=== PATIENT | female | born 1930 | race Caucasian/White ===

== ENCOUNTER 2016-06-15 15:28 | Inpatient (IN) | payer MEDICARE, BC ==
[2016-06-15] MEDS ORDERED: Sodium Chloride 0.9% 10 ML Syringe FLUSH PRN (16:30)
[2016-06-15] MEDS ORDERED: Sodium Chloride 0.9% 1,000 ML IV ONE (16:32)
[2016-06-15] MEDS ORDERED: Levofloxacin/Dextrose 5%-Water 500 MG in Premix Bag 1 BAG IV ONE (18:19)
--- NOTE | 2016-06-15 18:30 | EDM.PDOC ---
ED HPI LOWER BACK PAIN/INJURY - General Chief Complaint: Back Pain or Injury Stated Complaint: [facility] Time Seen by Provider: 06/15/16 16:19 Source of Information: Reports: Patient, EMS, Family (Son) History Limitations: Reports: No limitations - History of Present Illness INITIAL COMMENTS - FREE TEXT/NARRATIVE: Patient presents via the [facility] ambulance service for evaluation and treatment of weakness and dizziness. She has had 3 falls since Sunday; did not hit her head nor lose consciousness with the falls. She is progressively become more weak and dizzy throughout the week. She is also complaining of pain to her right flank and back and left lower ribs. She denies any nausea, vomiting, chest pain, abdominal pain, shortness of breath, coughing or diarrhea. She did not have a bowel movement today. Ambulance service was called today as the patient was unable to get out of bed due to her weakness. She lives in [place] with her son and [id number]. Per EMS report was incontinent of stool on arrival. 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 Denies: fever Respiratory: Denies: shortness of breath, cough Cardiovascular: Reports: Other (left rib pain). Denies: Chest pain GI/Abdominal: Reports: Stool incontinence. Denies: Abdominal pain, Diarrhea, Hematochezia, Melena, Nausea, Vomiting : Reports: flank pain (right). Denies: dysuria Neurological: Reports: dizziness ED EXAM,LOWER BACK PAIN/INJURY - Physical Exam Exam: See Below Exam Limited By: No limitations General Appearance: alert, WD/WN, no apparent distress Neck: normal inspection. 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 Q wave in lead III. Reviewed by myself and Dr. Mchugh. Course - Vital Signs Last Recorded V/S: Last Vital Signs Temp 37.3 C 06/15/16 21:30 Pulse 92 06/15/16 21:30 Resp 18 06/15/16 21:30 BP 134/62 06/15/16 21:30 Pulse Ox 91 L 06/15/16 21:30 - Orders/Labs/Meds Orders: Active Orders 24 hr Category Date Time Status Chest 1V Frontal [CR] Stat Exams 06/15/16 16:31 Taken CULTURE URINE [RM] Stat Lab 06/15/16 16:40 Received Sodium Chloride 0.9% [Saline Flush] Med 06/15/16 16:30 Active 10 ml FLUSH ASDIRECTED PRN Peripheral IV Insertion Adult [OM.PC] Routine Oth 06/15/16 16:30 Ordered Medication Orders Acetaminophen (Tylenol) 650 mg PO Q4H PRN PRN Reason: Pain (Mild 1-3)/fever Acetaminophen/Hydrocodone Bitart ([place] 325-5 Mg) 1 tab PO Q4H PRN PRN Reason: Pain (moderate 4-6) Albuterol (Proventil Neb Soln) 2.5 mg NEB Q2H PRN PRN Reason: Shortness Of Breath/wheezing Bisacodyl (Dulcolax) 5 mg PO DAILY PRN PRN Reason: Constipation Docusate Sodium (Colace) 100 mg PO BID PRN PRN Reason: Constipation Enoxaparin Sodium (Lovenox) 30 mg SUBCUT DAILY [facility] Hydromorphone HCl (Dilaudid) 0.25 mg IVPUSH Q2H PRN PRN Reason: Pain (severe 7-10) Dextrose/Sodium Chloride (Dextrose 5%-1/2 Ns) 1,000 mls @ 125 mls/hr IV ASDIRECTED [facility] Last Admin: 06/15/16 23:30 Dose: 125 mls/hr Levofloxacin/Dextrose 500 mg/ (Premix) 100 mls @ 100 mls/hr IV Q24H JESSIE Promethazine HCl 12.5 mg/ (Sodium Chloride) 50.5 mls @ 100 mls/hr IV Q6H PRN PRN Reason: Nausea/Vomiting Thiamine HCl 100 mg/ Sodium (Chloride) 101 mls @ 50 mls/hr IV ONETIME ONE Stop: 06/16/16 00:58 Levothyroxine Sodium (Levothyroxine) 75 mcg PO ACBREAKFAST [facility] Multivitamins (Thera) 1 each PO DAILY [facility] Ondansetron HCl (Zofran) 4 mg IV Q6H PRN PRN Reason: Nausea/Vomiting Pantoprazole Sodium (Protonix) 40 mg PO DAILY@0700 [facility] Senna/Docusate Sodium (Senna Plus) 1 tab PO BID PRN PRN Reason: Constipation Sodium Chloride (Saline Flush) 10 ml FLUSH ASDIRECTED PRN PRN Reason: Keep Vein Open Last Admin: 06/15/16 16:50 Dose: 10 ml Temazepam (Restoril) 15 mg PO BEDTIME PRN PRN Reason: Sleep Thiamine HCl (Vitamin B-1) 100 mg PO BEDTIME [facility] Labs: Laboratory Tests 06/15/16 06/15/16 06/15/16 Range/Units 15:48 16:40 16:40 WBC 14.79 H (3.98-10.04) K/mm3 RBC 4.12 (3.98-5.22) M/mm3 Hgb 12.6 (11.2-15.7) gm/L Hct 37.9 (34.1-44.9) % MCV 92.0 (79.4-94.8) fl MCH 30.6 (25.6-32.2) pg MCHC 33.2 (32.2-35.5) g/dl RDW Std Deviation 46.9 H (36.4-46.3) fL Plt Count 335 (182-369) K/mm3 MPV 8.8 L (9.4-12.3) fl Neut % (Auto) 86.0 H (34.0-71.1) % Lymph % (Auto) 6.0 L (19.3-51.7) % [place] % (Auto) 7.6 (4.7-12.5) % Eos % (Auto) 0.1 L (0.7-5.8) Baso % (Auto) 0.2 (0.1-1.2) % Neut # 12.72 H (1.56-6.13) K/mm3 Lymph # 0.89 L (1.18-3.74) K/mm3 [place] # 1.12 H (0.24-0.36) K/mm3 Eos # 0.01 L (0.04-0.36) K/mm3 Baso # 0.03 (0.01-0.08) K/mm3 Manual Slide Review Abnormal smear Sodium 138 (136-145) mEq/L Potassium 4.1 (3.5-5.1) mEq/L Chloride 100 (98-107) mEq/L Carbon Dioxide 27 (21-32) mEq/L Anion Gap 15.1 H (5-15) BUN 31 H (7-18) mg/dL Creatinine 1.0 (0.55-1.02) mg/dL Est Cr Clr Drug Dosing 37.80 mL/min Estimated GFR (MDRD) 53 (>60) mL/min BUN/Creatinine Ratio 31.0 H (14-18) Glucose 127 H (83-115) mg/dL Calcium 9.4 (8.5-10.1) mg/dL Total Bilirubin 0.6 (0.2-1.0) mg/dL AST 46 H (15-37) U/L ALT 44 (14-59) U/L Alkaline Phosphatase 152 H (46-116) U/L CK-MB (CK-2) 2.0 (0-3.6) ng/ml Troponin I < 0.017 (0.00-0.056) ng/mL C-Reactive Protein (<1.0) mg/dL B-Natriuretic Peptide (0-100) pg/mL Total Protein 7.3 (6.4-8.2) g/dl Albumin 3.3 L (3.4-5.0) g/dl Globulin 4.0 gm/dL Albumin/Globulin Ratio 0.8 L (1-2) TSH 3rd Generation 1.858 (0.358-3.74) uIU/mL Urine Color Meghann H (Yellow) Urine Appearance Clear (Clear) Urine pH 5.5 (5.0-8.0) Ur Specific [place] 1.025 (1.005-1.030) Urine Protein 2+ H (Negative) Urine Glucose (UA) Negative (Negative) Urine Ketones 1+ H (Negative) Urine Occult Blood 2+ H (Negative) Urine Nitrite Positive H (Negative) Urine Bilirubin 1+ H (Negative) Urine Urobilinogen 1.0 (0.2-1.0) Ur Leukocyte Esterase Negative (Negative) Urine RBC 0-5 (0-5) /hpf Urine WBC 5-10 H (0-5) /hpf Urine WBC Clumps Rare (NOT SEEN) /hpf Ur Squamous Epith Cells Not seen (0-5) /hpf Urine Bacteria Many H (FEW) /hpf Urine Mucus Not seen (FEW) /hpf 06/15/16 06/15/16 Range/Units 16:40 16:40 WBC (3.98-10.04) K/mm3 RBC (3.98-5.22) M/mm3 Hgb (11.2-15.7) gm/L Hct (34.1-44.9) % MCV (79.4-94.8) fl MCH (25.6-32.2) pg MCHC (32.2-35.5) g/dl RDW Std Deviation (36.4-46.3) fL Plt Count (182-369) K/mm3 MPV (9.4-12.3) fl Neut % (Auto) (34.0-71.1) % Lymph % (Auto) (19.3-51.7) % [place] % (Auto) (4.7-12.5) % Eos % (Auto) (0.7-5.8) Baso % (Auto) (0.1-1.2) % Neut # (1.56-6.13) K/mm3 Lymph # (1.18-3.74) K/mm3 [place] # (0.24-0.36) K/mm3 Eos # (0.04-0.36) K/mm3 Baso # (0.01-0.08) K/mm3 Manual Slide Review Sodium (136-145) mEq/L Potassium (3.5-5.1) mEq/L Chloride (98-107) mEq/L Carbon Dioxide (21-32) mEq/L Anion Gap (5-15) BUN (7-18) mg/dL Creatinine (0.55-1.02) mg/dL Est Cr Clr Drug Dosing mL/min Estimated GFR (MDRD) (>60) mL/min BUN/Creatinine Ratio (14-18) Glucose (83-115) mg/dL Calcium (8.5-10.1) mg/dL Total Bilirubin (0.2-1.0) mg/dL AST (15-37) U/L ALT (14-59) U/L Alkaline Phosphatase (46-116) U/L CK-MB (CK-2) (0-3.6) ng/ml Troponin I (0.00-0.056) ng/mL C-Reactive Protein 13.8 H* (<1.0) mg/dL B-Natriuretic Peptide 94 (0-100) pg/mL Total Protein (6.4-8.2) g/dl Albumin (3.4-5.0) g/dl Globulin gm/dL Albumin/Globulin Ratio (1-2) TSH 3rd Generation (0.358-3.74) uIU/mL Urine Color (Yellow) Urine Appearance (Clear) Urine pH (5.0-8.0) Ur Specific [place] (1.005-1.030) Urine Protein (Negative) Urine Glucose (UA) (Negative) Urine Ketones (Negative) Urine Occult Blood (Negative) Urine Nitrite (Negative) Urine Bilirubin (Negative) Urine Urobilinogen (0.2-1.0) Ur Leukocyte Esterase (Negative) Urine RBC (0-5) /hpf Urine WBC (0-5) /hpf Urine WBC Clumps (NOT SEEN) /hpf Ur Squamous Epith Cells (0-5) /hpf Urine Bacteria (FEW) /hpf Urine Mucus (FEW) /hpf Meds: Medications Generic Name Dose Route Start Last Admin Trade Name Freq PRN Reason Stop Dose Admin Acetaminophen 650 mg 06/15/16 22:52 Tylenol PO Q4H PRN Pain (Mild 1-3)/fever Acetaminophen/Hydrocodone Bitart 1 tab 06/15/16 22:52 [place] 325-5 Mg PO Q4H PRN Pain (moderate 4-6) Albuterol 2.5 mg 06/15/16 22:52 Proventil Neb Soln NEB Q2H PRN Shortness Of Breath/wheezing Bisacodyl 5 mg 06/15/16 22:52 Dulcolax PO DAILY PRN Constipation Docusate Sodium 100 mg 06/15/16 22:52 Colace PO BID PRN Constipation Enoxaparin Sodium 30 mg 06/16/16 09:00 Lovenox SUBCUT DAILY JESSIE Hydromorphone HCl 0.25 mg 06/15/16 22:52 Dilaudid IVPUSH Q2H PRN Pain (severe 7-10) Dextrose/Sodium Chloride 1,000 mls @ 125 mls/hr 06/15/16 23:00 06/15/16 23:30 Dextrose 5%-1/2 Ns IV 125 mls/hr ASDIRECTED JESSIE Administration Levofloxacin/Dextrose 500 mg/ 100 mls @ 100 mls/hr 06/16/16 09:00 Premix IV Q24H JESSIE Promethazine HCl 12.5 mg/ 50.5 mls @ 100 mls/hr 06/15/16 22:52 Sodium Chloride IV Q6H PRN Nausea/Vomiting Thiamine HCl 100 mg/ Sodium 101 mls @ 50 mls/hr 06/15/16 22:57 Chloride IV 06/16/16 00:58 ONETIME ONE Levothyroxine Sodium 75 mcg 06/16/16 06:00 Levothyroxine PO ACBREAKFAST [facility] Multivitamins 1 each 06/16/16 09:00 Thera PO DAILY [facility] Ondansetron HCl 4 mg 06/15/16 22:52 Zofran IV Q6H PRN Nausea/Vomiting Pantoprazole Sodium 40 mg 06/16/16 07:00 Protonix PO DAILY@0700 JESSIE Senna/Docusate Sodium 1 tab 06/15/16 22:52 Senna Plus PO BID PRN Constipation Sodium Chloride 10 ml 06/15/16 16:30 06/15/16 16:50 Saline Flush FLUSH 10 ml ASDIRECTED PRN Administration Keep Vein Open Temazepam 15 mg 06/15/16 22:52 Restoril PO BEDTIME PRN Sleep Thiamine HCl 100 mg 06/16/16 21:00 Vitamin B-1 PO BEDTIME JESSIE Discontinued Medications Generic Name Dose Route Start Last Admin Trade Name Dick PRN Reason Stop Dose Admin Sodium Chloride 1,000 mls @ 999 mls/hr 06/15/16 16:32 06/15/16 16:54 Normal Saline IV 06/15/16 17:32 999 mls/hr ONETIME ONE Administration Levofloxacin/Dextrose 500 mg/ 100 mls @ 100 mls/hr 06/15/16 18:19 06/15/16 18 :24 Premix IV 06/15/16 19:18 100 mls/hr ONETIME ONE Administration Influenza Virus Vaccine 60 mcg 06/15/16 22:46 Fluzone/Fluarix Vaccine IM 06/15/16 22:47 .ONCE ONE - Radiology Interpretation Free Text/Narrative:: Chest xray shows no acute intrathoracic process. CT Results Date: 06/15/16 - Re-Assessments/Exams Free Text/Narrative Re-Assessment/Exam: 06/15/16 18:54 Lab studies have returned. White blood cell count is 14.79, hgb is 12.6 and platelets are 335. UA has 2+ protein, 1+ ketones, 2+ blood, 1+ bilirubin and positive for nitrates. Negative for leukocytes. Sodium is 138, potassium is 4.1 and chloride is 100. Anion gap is 15.1. Glucose is 127. Trop is within normal limits at less than 0.017 CK-MB is within normal limits at 2.0. CRP is elevated at 13.8. TSH is within normal limits at 1.858. Discussed the imaging, lab and EKG results with the patient amd her son. I feel that she is too weak to go home and is at risk for falls. Her son agrees. We will plan on admission. I spoke to Dr. Carr, hospitalist monogram technician. He accepts the patient. Will go to [facility] [place]. Under Dr. Maya. Departure - Departure Time of Disposition: 19:00 Disposition: Admitted As Inpatient 66 Condition: poor Clinical Impression: Urinary tract infection, Weakness - My Orders Last 24 Hours: My Active Orders 06/15/16 16:30 Sodium Chloride 0.9% [Saline Flush] 10 ml FLUSH ASDIRECTED PRN Peripheral IV Insertion Adult [OM.PC] Routine 06/15/16 16:31 Chest 1V Frontal [CR] Stat 06/15/16 16:40 CULTURE URINE [RM] Stat - Assessment/Plan Last 24 Hours: My Active Orders 06/15/16 16:30 Sodium Chloride 0.9% [Saline Flush] 10 ml FLUSH ASDIRECTED PRN Peripheral IV Insertion Adult [OM.PC] Routine 06/15/16 16:31 Chest 1V Frontal [CR] Stat 06/15/16 16:40 CULTURE URINE [RM] Stat
--- NOTE | 2016-06-15 18:41 | CT ---
CT abdomen and pelvis Technique: Multiple axial sections were obtained from above the dome of the diaphragm inferiorly through the pubic symphysis. Intravenous and oral contrast not utilized. Study was performed as a ureteral stone protocol. Comparison: No previous study. Findings: Increased density noted within the right lung base most likely due to atelectasis or possibly due to pneumonia if patient has infectious symptoms. Liver shows no focal abnormality. Adrenal glands show no nodule. Pancreas appears within normal limits. Small to moderate sized hiatal hernia is noted. Cyst is identified within the left kidney measuring approximately 4.5 cm. Kidneys show no abnormal calcifications. No ureteral dilatation is seen. No abnormal calcifications are seen along the course of the ureters. Pancreas is within normal limits for noncontrast study. Aorta shows atherosclerotic change which continues into the iliac vessels without aneurysmal dilatation. Gallbladder shows no calcified gallstones. No retroperitoneal adenopathy or mesenteric abnormalities are seen. Small fat-containing umbilical hernia is seen. Diverticuli are noted within the sigmoid colon without diverticulitis. There is questionable wall thickening within portions of the descending and sigmoid colons and mild colitis is not excluded. Mild increased stool is noted within the rectum. Lesser stool scattered throughout other portions of the colon. Bone window settings were reviewed which shows degenerative change within the spine. Most prominent findings are spondylolisthesis at L4-L5 due to degenerative apophyseal change. Vacuum disc phenomena with narrowing is seen within the L5-S1 disc. Impression: 1. No renal calculi, ureteral dilatation or ureteral stone is seen. 2. Slight wall thickening is possible within the descending colon and sigmoid regions. Difficult to exclude mild nonspecific colitis if patient has any correlating symptoms. 3. Mild increased stool within the rectum and other portions of the colon. 4. Mild increased density within the right lung base either due to atelectasis or less likely pneumonia (please correlate if patient has any infectious symptoms). 5. Other incidental findings. Diagnostic code #2 MTDD
--- NOTE | 2016-06-15 22:32 | PCM.HP ---
H&P History of Present Illness - General Date of Service: 06/15/16 Admit Problem/Dx: Admission Diagnosis/Problem Admission Diagnosis/Problem UTI, Urinary tract infection following delivery Source of Information: Patient, Old records, Provider History Limitations: Reports: No limitations - History of Present Illness Initial Comments - Free Text/Narative: This is an 86 yo elderly white female with past medical hx/o GERD and Hypothyrodism who comes in for evaluation of worsening weakness associated with increased confusion for over a week now. Per son, she appears more confused than usual. Patient lives alone, mostly in bed and now unable to get out of bed due to generalized weakness. Patient has fallen 3 times. She is now complaining of right flank, back and left lower ribs pain. She denies any abdominal pain, nausea, vomiting, chest pain, shortness of breath, constipation or diarrhea. She carries urinary and bladder incontinence. Her initial work up in ED shows a CBC remarkable for WBC of 14.79 and Neutrophils 12.72. Her chemistry is remarkable for AG 15.1, BUN 31, Cr 1, BS 127 , AST 46, ALT 44, Alk Phos 152, CRP 13.8, and Albumin 3.3. Her UA shows pos for UTI. CXR shows mild increased opacification within the right lung base. Her Abdominal/Pelvis CT scan shows slight wall thickening within the descending colon and sigmoid colon difficult to exclude non-specific colitis. Patient was referred to me for multiple issues: Generalized Weakness, Neglect, Confusion, UTI and Non-specific Colitis. She is full code. Right Upper Back Pain Score (Numeric/FACES): 10 Left Upper Abdomen Pain Score (Numeric/FACES): 10 - Related Data Allergies/Adverse Reactions: Allergies Allergy/AdvReac Type Severity Reaction Status Date / Time iodine Allergy Hives Verified 06/15/16 15:33 seafood Allergy Hives Uncoded 06/15/16 15:33 Home Medications: Home Meds Levothyroxine 75 mcg PO ACBREAKFAST 06/15/16 [History] Omeprazole 40 mg PO DAILY 06/15/16 [History] Past Medical History Gastrointestinal History: Reports: GERD [employer] History: Reports: Other Musculoskeletal History: varicose vein stripping on the right leg Endocrine/Metabolic History: Reports: Hypothyroidism - Past Surgical History HEENT Surgical History: Reports: Tonsillectomy Social & Family History - Tobacco Use Smoking Status *Q: Never Smoker - Caffeine Use Caffeine Use: Reports: Coffee - Recreational Drug Use Recreational Drug Use: No H&P Review of Systems - Review of Systems: Review Of Systems: See Below General: Reports: malaise, weakness, fatigue. Denies: fever, chills HEENT: Reports: no symptoms Pulmonary: Reports: shortness of breath Cardiovascular: Denies: chest pain Gastrointestinal: Denies: Abdominal pain, Nausea, Vomiting Genitourinary: Reports: incontinence Musculoskeletal: Reports: other (Right Flank and Left Rib Pain ) Skin: Denies: cyanosis, pruritis, change in hair/nails Psychiatric: Denies: depression, anxiety, hallucinations Neurological: Reports: dizziness, weakness. Denies: confusion Hematologic/Lymphatic: Reports: no symptoms Immunologic: Reports: no symptoms Exam - Exam Exam: See Below - Vital Signs Vital Signs: Last Vital Signs Temp 37.3 C 06/15/16 21:30 Pulse 92 06/15/16 21:30 Resp 18 06/15/16 21:30 BP 134/62 06/15/16 21:30 Pulse Ox 91 L 06/15/16 21:30 Weight: 77.111 kg - Exam General: alert, cooperative, mild distress HEENT: Conjunctiva clear, EACs clear, EOMI, Hearing intact, Mucosa moist & pink , Nares patent, Normal nasal septum, Posterior pharynx clear, Pupils equal, Pupils reactive Neck: supple, trachea midline, full range of motion Lungs: Clear to auscultation, Normal respiratory effort, Decreased breath sounds Cardiovascular: regular rate, regular rhythm Abdomen: normal bowel sounds, soft. No: organomegaly, peritoneal signs, distention, guarding, rigidity, rebound, tenderness (Female) Exam: Deferred Rectal (Female) Exam: Deferred Back Exam: normal inspection, decreased range of motion Extremities: normal inspection, normal pulses, other (varicose veins). No: clubbing, cyanosis, edema Peripheral Pulses: 2+: dorsalis pedis (L), dorsalis pedis (R) Skin: warm, dry, intact Neuro Extensive - Mental Status: normal cognition, memory intact Neuro Extensive - Motor, Sensory, Reflexes: CN II-XII intact (limited due to weakness) Psychiatric: alert, normal affect, normal mood. No: suicidal ideation, hallucinations - Patient Data Result Diagrams: 06/15/16 16:40 06/15/16 16:40 EKG INTERPRETATION EKG Date: 06/15/16 Time: 17:40 Rhythm: NSR Rate (beats/min): 96 P-wave: present QRS: normal ST-T: normal QT: normal Comparison: NA - no prior EKG EKG Interpretation Comments: Q wave in lead 3 *Q Meaningful Use (ADM) - VTE *Q VTE Criteria *Q: - Stroke *Q Stroke Criteria *Q: - AMI *Q AMI Criteria *Q: Problem List Initiated/Reviewed/Updated: Yes Orders Last 24hrs: Medication Orders Sodium Chloride (Saline Flush) 10 ml FLUSH ASDIRECTED PRN PRN Reason: Keep Vein Open Last Admin: 06/15/16 16:50 Dose: 10 ml Assessment/Plan Comment:: Assessment/Plan: Acute: Encephalopathy - Likely 2/2 Toxic/Metabolic - Has UTI/NS-Colitis - Treat underlying cause - Aspiration/Fall Precautions Urinary Tract Infection - Risk factor: Incontinence and Prolonged Bed-Bound - UA pos - Received initial ATB in ED - IV Levaquin 500 mg daily Non Specific-Colitis - No hx/o diverticulitis - CRP is 13 - Consider adding Flagyl IV 500 mg Q8 if no response to treatment Generalized Weakness - Likely 2/2 Above - Check for Thyroid Panel and Vit D level - PT/OT consult for deconditioning Self Neglect - She lives - Appeared somewhat disheveled - Has not taken shower for ? weeks and months - Toenails: long and untrimmed Chronic: GERD Hypothyroidism Plan: Admit to Med-Surg Routine AM Labs Resume Home Meds PT/OT consult SW/CM for d/c planning Spiritual Care consult Code Status: Full code
[2016-06-15] MEDS ORDERED: Flu Vaccine 2016-17(36Mos+)/PF 60 MCG/0.5 ML Syringe IM ONE (22:46)
[2016-06-15] MEDS ORDERED: Acetaminophen 325 MG Tab PO PRN (22:52)
[2016-06-15] MEDS ORDERED: Docusate Sodium 100 MG Cap PO PRN (22:52)
[2016-06-15] MEDS ORDERED: HYDROmorphone 0.5 MG/0.5 ML Syringe IVPUSH PRN (22:52)
[2016-06-15] MEDS ORDERED: Albuterol 0.083% 2.5 MG/3 ML Neb Soln NEB PRN (22:52)
[2016-06-15] MEDS ORDERED: Bisacodyl 5 MG Tab PO PRN (22:52)
[2016-06-15] MEDS ORDERED: Promethazine 12.5 MG in Sodium Chloride 0.9% 50 ML IV PRN (22:52)
[2016-06-15] MEDS ORDERED: Ondansetron 4 MG/2 ML SDV IV PRN (22:52)
[2016-06-15] MEDS ORDERED: Thiamine 100 MG in Sodium Chloride 0.9% 100 ML IV ONE (22:57)
[2016-06-15] MEDS: Dextrose 5%-0.45% NaCl 1,000 ML IV SCH (23:30)
[2016-06-16] MEDS: Pantoprazole 40 MG Tab.CR PO SCH (06:59)
[2016-06-16] MEDS: Levothyroxine 75 MCG Tab PO SCH (06:59)
[2016-06-16] MEDS: Dextrose 5%-0.45% NaCl 1,000 ML IV SCH ×2 (07:49→17:06)
[2016-06-16] MEDS: Multivitamins,Therapeutic Tab PO SCH ×2 (07:49→09:44)
[2016-06-16] MEDS: Acetaminophen/HYDROcodone 325-5 MG Tab PO PRN ×2 (07:49→20:54)
[2016-06-16] MEDS: Enoxaparin 40 MG/0.4 ML Syringe SUBCUT SCH ×2 (07:50→09:44)
--- NOTE | 2016-06-16 08:15 | CR ---
Chest: Portable view of the chest was obtained. Comparison: No previous study. Mild increased density is noted within both lung bases. Upper lungs are clear. Heart size is normal. Tortuous thoracic aorta is seen. Bony structures are osteopenic. Impression: 1. Increased density within both lung bases. Findings most likely due to atelectasis but please exclude any infectious symptoms of pneumonia. 2. Other incidental findings. Diagnostic code #2
[2016-06-16] MEDS ORDERED: Non-Formulary Medication 1 Each (Omeprazole 40 MG) PO SCH (09:00)
[2016-06-16] MEDS ORDERED: Enoxaparin 30 MG/0.3 ML Syringe SUBCUT SCH (09:00)
--- NOTE | 2016-06-16 09:19 | PCM.PN ---
- General Info Date of Service: 06/16/16 Admission Dx/Problem (Free Text): Admission Diagnosis/Problem Admission Diagnosis/Problem UTI Beata is an 86yo female admitted last evening with AUTI, generalized weakness and falls at home. She is pleasant and confused this morning. Denies c/o pain/discomfort. States she ate this morning, then states "I can't remember if I ate or not". States no CP, SOB, abd pain, headache. She does have left sided rib pain with deep breaths. Rib xrays and lumbar xrays obtained this am s/p fall at home with c/o rib pain and LBP- both negative for acute findings. Functional Status: Reports: pain controlled, tolerating diet, urinating ( incontinent). Denies: ambulating (max assist with lift for transfers reported per PT), new symptoms - Review of Systems General: Reports: weakness, fatigue HEENT: Reports: no symptoms Pulmonary: Reports: no symptoms. Denies: shortness of breath, pleuritic chest pain, cough Cardiovascular: Reports: no symptoms Gastrointestinal: Denies: Abdominal pain, Diarrhea, Nausea Genitourinary: Reports: no symptoms Musculoskeletal: Reports: back pain, other (left rib pain) Neurological: Reports: confusion Psychiatric: Reports: no symptoms - Patient Data Vitals - most recent: Last Vital Signs Temp 99.7 F 06/16/16 09:06 Pulse 84 06/16/16 09:06 Resp 20 06/16/16 09:06 BP 111/48 L 06/16/16 09:06 Pulse Ox 94 L 06/16/16 09:06 Weight - most recent: 181 lb 1 oz Lab Results last 24 hrs: Laboratory Results - last 24 hr 06/16/16 06/16/16 Range/Units 05:45 05:45 WBC 11.73 H (3.98-10.04) K/mm3 RBC 3.72 L (3.98-5.22) M/mm3 Hgb 11.3 (11.2-15.7) gm/L Hct 34.3 (34.1-44.9) % MCV 92.2 (79.4-94.8) fl MCH 30.4 (25.6-32.2) pg MCHC 32.9 (32.2-35.5) g/dl RDW Std Deviation 46.5 H (36.4-46.3) fL Plt Count 299 (182-369) K/mm3 MPV 9.4 (9.4-12.3) fl Neut % (Auto) 84.6 H (34.0-71.1) % Lymph % (Auto) 7.6 L (19.3-51.7) % [place] % (Auto) 7.5 (4.7-12.5) % Eos % (Auto) 0 L (0.7-5.8) Baso % (Auto) 0.1 (0.1-1.2) % Neut # 9.93 H (1.56-6.13) K/mm3 Lymph # 0.89 L (1.18-3.74) K/mm3 [place] # 0.88 H (0.24-0.36) K/mm3 Eos # 0.00 L (0.04-0.36) K/mm3 Baso # 0.01 (0.01-0.08) K/mm3 Manual Slide Review Abnormal smear Sodium 136 (136-145) mEq/L Potassium 3.8 (3.5-5.1) mEq/L Chloride 102 (98-107) mEq/L Carbon Dioxide 24 (21-32) mEq/L Anion Gap 13.8 (5-15) BUN 26 H (7-18) mg/dL Creatinine 1.0 (0.55-1.02) mg/dL Est Cr Clr Drug Dosing 39.27 mL/min Estimated GFR (MDRD) 53 (>60) mL/min BUN/Creatinine Ratio 26.0 H (14-18) Glucose 157 H (83-115) mg/dL Calcium 8.5 (8.5-10.1) mg/dL Magnesium 2.1 (1.8-2.4) mg/dl C-Reactive Protein 15.4 H* (<1.0) mg/dL Free T4 1.13 (0.76-1.46) ng/dL Med Orders - Current: Current Medications Acetaminophen (Tylenol) 650 mg PO Q4H PRN PRN Reason: Pain (Mild 1-3)/fever Acetaminophen/Hydrocodone Bitart ([place] 325-5 Mg) 1 tab PO Q4H PRN PRN Reason: Pain (moderate 4-6) Last Admin: 06/16/16 07:49 Dose: 1 tab Albuterol (Proventil Neb Soln) 2.5 mg NEB Q2H PRN PRN Reason: Shortness Of Breath/wheezing Bisacodyl (Dulcolax) 5 mg PO DAILY PRN PRN Reason: Constipation Docusate Sodium (Colace) 100 mg PO BID PRN PRN Reason: Constipation Enoxaparin Sodium (Lovenox) 40 mg SUBCUT DAILY [facility] Last Admin: 06/16/16 07:50 Dose: 40 mg Hydromorphone HCl (Dilaudid) 0.25 mg IVPUSH Q2H PRN PRN Reason: Pain (severe 7-10) Dextrose/Sodium Chloride (Dextrose 5%-1/2 Ns) 1,000 mls @ 125 mls/hr IV ASDIRECTED [facility] Last Admin: 06/16/16 07:49 Dose: 125 mls/hr Levofloxacin/Dextrose 250 mg/ (Premix) 50 mls @ 50 mls/hr IV Q24H JESSIE Promethazine HCl 12.5 mg/ (Sodium Chloride) 50.5 mls @ 100 mls/hr IV Q6H PRN PRN Reason: Nausea/Vomiting Levothyroxine Sodium (Levothyroxine) 75 mcg PO ACBREAKFAST [facility] Last Admin: 06/16/16 06:59 Dose: 75 mcg Multivitamins (Thera) 1 each PO DAILY [facility] Last Admin: 06/16/16 07:49 Dose: 1 each Ondansetron HCl (Zofran) 4 mg IV Q6H PRN PRN Reason: Nausea/Vomiting Pantoprazole Sodium (Protonix) 40 mg PO DAILY@0700 [facility] Last Admin: 06/16/16 06:59 Dose: 40 mg Senna/Docusate Sodium (Senna Plus) 1 tab PO BID PRN PRN Reason: Constipation Sodium Chloride (Saline Flush) 10 ml FLUSH ASDIRECTED PRN PRN Reason: Keep Vein Open Last Admin: 06/15/16 16:50 Dose: 10 ml Temazepam (Restoril) 15 mg PO BEDTIME PRN PRN Reason: Sleep Thiamine HCl (Vitamin B-1) 100 mg PO BEDTIME [facility] Discontinued Medications Sodium Chloride (Normal Saline) 1,000 mls @ 999 mls/hr IV ONETIME ONE Stop: 06/15/16 17:32 Last Admin: 06/15/16 16:54 Dose: 999 mls/hr Levofloxacin/Dextrose 500 mg/ (Premix) 100 mls @ 100 mls/hr IV ONETIME ONE Stop: 06/15/16 19:18 Last Admin: 06/15/16 18:24 Dose: 100 mls/hr Thiamine HCl 100 mg/ Sodium (Chloride) 101 mls @ 50 mls/hr IV ONETIME ONE Stop: 06/16/16 00:58 Last Admin: 06/16/16 00:05 Dose: 50 mls/hr Influenza Virus Vaccine (Fluzone/Fluarix Vaccine) 60 mcg IM .ONCE ONE Stop: 06/15/16 22:47 - Exam Quality Assessment: DVT prophylaxis General: alert, cooperative, no acute distress HEENT: Pupils equal, Pupils reactive, EOMI, Mucous membr. moist/pink Neck: supple Lungs: Clear to auscultation, Normal respiratory effort, Decreased breath sounds (to bases), Other (palp of chest wall is with tenderness to lateral left chest wall; no crepitus noted) Cardiovascular: regular rate, regular rhythm Abdomen: bowel sounds present, soft, no tenderness (Female) Exam: Deferred Extremities: no edema, no calf tenderness, other (long toenails; scaly skin findings to toes/feet bilaterally; no open areas that I can appreciate) Peripheral Pulses: 1+: dorsalis pedis (L), dorsalis pedis (R) Skin: warm, dry Neurological: no new focal deficit, normal speech, normal tone, cranial nerves intact Psy/Mental Status: alert, normal mood - Problem List & Annotations (1) Urinary tract infection SNOMED Code(s): 98909592 Code(s): N39.0 - URINARY TRACT INFECTION, SITE NOT SPECIFIED Status: Acute Priority: High Current Visit: Yes Qualifiers: Urinary tract infection type: acute cystitis Hematuria presence: with hematuria Qualified Code(s): N30.01 - Acute cystitis with hematuria (2) Weakness SNOMED Code(s): 38595909 Code(s): R53.1 - WEAKNESS Status: Acute Priority: High Current Visit: Yes (3) Falls frequently SNOMED Code(s): 972312282 Code(s): R29.6 - REPEATED FALLS Status: Acute Priority: High Current Visit: Yes (4) Rib pain on left side SNOMED Code(s): 138637155 Code(s): R07.81 - PLEURODYNIA Status: Acute Priority: High Current Visit: Yes (5) Back pain SNOMED Code(s): 154605951 Code(s): M54.9 - DORSALGIA, UNSPECIFIED Status: Acute Priority: High Current Visit: Yes Qualifiers: Back pain location: low back pain Chronicity: acute Back pain laterality : midline Sciatica presence: without sciatica Qualified Code(s): M54.5 - Low back pain - Problem List Review Problem List Initiated/Reviewed/Updated: Yes - My Orders Last 24 Hours: My Active Orders 06/16/16 06:46 Consult to Physician [CONS] Routine 06/16/16 06:48 Notify Provider Consults [RC] ASDIRECTED Blood Culture x2 Reflex Set [OM.PC] Stat 06/16/16 06:52 Lumbar Spine 2 or 3V [CR] Routine Ribs 2V w Chest Lt [CR] Routine 06/16/16 07:24 CULTURE BLOOD [BC] Stat 06/16/16 07:30 CULTURE BLOOD [BC] Stat - Plan Plan:: Assessment/Plan: Acute: Encephalopathy - Likely 2/2 Toxic/Metabolic - Has UTI/NS-Colitis - Treat underlying cause - Aspiration/Fall Precautions Urinary Tract Infection - Risk factor: Incontinence and Prolonged Bed-Bound - UA pos- preliminary cx with GNRods - Received initial ATB in ED - Due to sensitivity of GNR will change levaquin to Rocephin IV QD Non Specific-Colitis - No hx/o diverticulitis - CRP is 13 - Consider adding Flagyl IV 500 mg Q8 if no response to treatment - Add Florastor Generalized Weakness - Likely 2/2 Above - Check for Thyroid Panel and Vit D level - PT/OT consult for deconditioning Self Neglect - She lives - Appeared somewhat disheveled - Has not taken shower for ? weeks and months - Toenails: long and untrimmed- consult to Podiatry, Dr Jacinto Recurrent falls at home with left sided rib pain and low back pain -rib xray and lumbar spine xray today-- both negative for acute findings -PT/OT -Consider SNF for rehab stay Chronic: GERD Hypothyroidism Plan: Admit to Med-Surg Routine AM Labs Resume Home Meds PT/OT consult SW/CM for d/c planning Spiritual Care consult Code Status: Full code
--- NOTE | 2016-06-16 11:29 | CR ---
Lumbar spine: AP, lateral and coned-down lateral views centered to the lumbosacral junction were obtained. Comparison: Reconstructed sagittal images obtained during CT stone protocol study performed one day earlier (06/15/16). Moderate disc space narrowing noted at L5-S1 with vacuum phenomena. Spondylolisthesis noted at L4-L5 due to degenerative apophyseal change. Spondylolisthesis on plain film exam measures about 1.0 cm. Posterior disc space narrowing is seen throughout other portions of the lumbar spine. Vertebral body heights are maintained. Minimal scattered endplate osteophytes are seen. Bony structures are osteopenic. Sacroiliac joints are unremarkable. Impression: 1. Degenerative change as described above. Nothing acute is appreciated on three-view lumbar spine exam. Diagnostic code #2
--- NOTE | 2016-06-16 11:29 | CR ---
Chest and left ribs: Frontal view of the chest was obtained as well as 3 views of the left ribs. Comparison: Previous chest x-ray of 06/15/16. Heart size is normal. Mild tortuosity of the thoracic aorta is seen. Mild increased density is again noted within both lung bases. Bony structures are osteopenic. No fracture or other abnormality is appreciated. Impression: 1. No discrete left-sided rib abnormality is appreciated. Nondisplaced fracture could easily be missed. 2. Mild bibasilar atelectasis is noted. As mentioned on prior CT study, difficult to exclude right lower lobe pneumonia if patient has correlating symptoms. Diagnostic code #3
[2016-06-16] MEDS ORDERED: Diphtheria,Pertussis(Acell),Tetanus Vaccine 0.5 ML SDV inactive IM ONE (13:00)
[2016-06-16] MEDS ORDERED: Pneumococcal 13-Valent Conjugate Vaccine 0.5 ML Syringe IM ONE (13:01)
[2016-06-16] MEDS: cefTRIAXone 1 GM in Sodium Chloride 0.9% 100 ML IV SCH (13:30)
[2016-06-16] MEDS ORDERED: Levofloxacin/Dextrose 5%-Water 250 MG in Premix Bag 1 BAG IV SCH (18:00)
[2016-06-16] MEDS: Saccharomyces Boulardii (Probiotic) 250 MG Cap PO SCH (20:54)
[2016-06-16] MEDS: Temazepam 15 MG Cap PO PRN (20:54)
[2016-06-16] MEDS: Thiamine 100 MG Tab PO SCH (20:54)
[2016-06-17] MEDS: Dextrose 5%-0.45% NaCl 1,000 ML IV SCH ×2 (02:00→23:35)
[2016-06-17] MEDS: Levothyroxine 75 MCG Tab PO SCH (06:13)
[2016-06-17] MEDS: Pantoprazole 40 MG Tab.CR PO SCH (06:13)
--- NOTE | 2016-06-17 08:03 | PCM.PN ---
- General Info Date of Service: 06/17/16 Admission Dx/Problem (Free Text): Admission Diagnosis/Problem Admission Diagnosis/Problem UTI Subjective Update: Follow Up Functional Status: Reports: pain controlled, tolerating diet, ambulating, urinating. Denies: new symptoms - Review of Systems General: Denies: fever, weakness, fatigue, malaise, chills HEENT: Reports: no symptoms Pulmonary: Denies: shortness of breath Cardiovascular: Denies: chest pain Gastrointestinal: Denies: Abdominal pain, Nausea, Vomiting Genitourinary: Reports: no symptoms Musculoskeletal: Reports: no symptoms Skin: Reports: no symptoms Neurological: Denies: confusion Psychiatric: Denies: depression, anxiety Systems Review Comment:: No overnight or acute issues. She fells better this am. WBC is now at 7.47 and CRP is 13. UA is pos for E. Coli sensitive to Rocephin. She has no new complaints. - Patient Data Vitals - most recent: Last Vital Signs Temp 36.9 C 06/17/16 04:55 Pulse 84 06/17/16 04:55 Resp 16 06/17/16 04:55 BP 120/46 L 06/17/16 04:55 Pulse Ox 93 L 06/17/16 04:55 Weight - most recent: 86.319 kg I&O - last 24 hours: Intake & Output 06/16/16 06/17/16 06/17/16 22:59 06:59 14:59 Intake Total [id number] Balance 2334 4708 Lab Results last 24 hrs: Laboratory Results - last 24 hr 06/16/16 06/17/16 06/17/16 Range/Units 05:45 05:40 05:40 WBC 11.73 H 7.47 (3.98-10.04) K/mm3 RBC 3.72 L 3.33 L (3.98-5.22) M/mm3 Hgb 11.3 10.1 L (11.2-15.7) gm/L Hct 34.3 30.9 L (34.1-44.9) % MCV 92.2 92.8 (79.4-94.8) fl MCH 30.4 30.3 (25.6-32.2) pg MCHC 32.9 32.7 (32.2-35.5) g/dl RDW Std Deviation 46.5 H 46.1 (36.4-46.3) fL Plt Count 299 298 (182-369) K/mm3 MPV 9.4 9.1 L (9.4-12.3) fl Neut % (Auto) 84.6 H 69.4 (34.0-71.1) % Lymph % (Auto) 7.6 L 17.9 L (19.3-51.7) % [place] % (Auto) 7.5 9.4 (4.7-12.5) % Eos % (Auto) 0 L 2.5 (0.7-5.8) Baso % (Auto) 0.1 0.4 (0.1-1.2) % Neut # 9.93 H 5.18 (1.56-6.13) K/mm3 Lymph # 0.89 L 1.34 (1.18-3.74) K/mm3 [place] # 0.88 H 0.70 H (0.24-0.36) K/mm3 Eos # 0.00 L 0.19 (0.04-0.36) K/mm3 Baso # 0.01 0.03 (0.01-0.08) K/mm3 Manual Slide Review Abnormal smear Sodium 134 L (136-145) mEq/L Potassium 3.7 (3.5-5.1) mEq/L Chloride 101 (98-107) mEq/L Carbon Dioxide 26 (21-32) mEq/L Anion Gap 10.7 (5-15) BUN 20 H (7-18) mg/dL Creatinine 0.9 (0.55-1.02) mg/dL Est Cr Clr Drug Dosing 43.63 mL/min Estimated GFR (MDRD) 59 (>60) mL/min BUN/Creatinine Ratio 22.2 H (14-18) Glucose 115 (83-115) mg/dL Calcium 8.1 L (8.5-10.1) mg/dL Magnesium 1.8 (1.8-2.4) mg/dl C-Reactive Protein 13.0 H* (<1.0) mg/dL [place] Results last 24 hrs: Microbiology 06/16/16 07:24 Aerobic Blood Culture - Preliminary Blood - Venous NO GROWTH AFTER 1 DAY Anaerobic Blood Culture - Preliminary NO GROWTH AFTER 1 DAY 06/16/16 07:30 Aerobic Blood Culture - Preliminary Blood - Venous - Lab Draw NO GROWTH AFTER 1 DAY Anaerobic Blood Culture - Preliminary NO GROWTH AFTER 1 DAY Med Orders - Current: Current Medications Acetaminophen (Tylenol) 650 mg PO Q4H PRN PRN Reason: Pain (Mild 1-3)/fever Acetaminophen/Hydrocodone Bitart ([place] 325-5 Mg) 1 tab PO Q4H PRN PRN Reason: Pain (moderate 4-6) Last Admin: 06/16/16 20:54 Dose: 1 tab Albuterol (Proventil Neb Soln) 2.5 mg NEB Q2H PRN PRN Reason: Shortness Of Breath/wheezing Bisacodyl (Dulcolax) 5 mg PO DAILY PRN PRN Reason: Constipation Docusate Sodium (Colace) 100 mg PO BID PRN PRN Reason: Constipation Enoxaparin Sodium (Lovenox) 40 mg SUBCUT DAILY [facility] Last Admin: 06/16/16 09:44 Dose: Not Given Hydromorphone HCl (Dilaudid) 0.25 mg IVPUSH Q2H PRN PRN Reason: Pain (severe 7-10) Dextrose/Sodium Chloride (Dextrose 5%-1/2 Ns) 1,000 mls @ 125 mls/hr IV ASDIRECTED [facility] Last Admin: 06/17/16 02:00 Dose: 125 mls/hr Promethazine HCl 12.5 mg/ (Sodium Chloride) 50.5 mls @ 100 mls/hr IV Q6H PRN PRN Reason: Nausea/Vomiting Ceftriaxone Sodium 1 gm/ (Sodium Chloride) 100 mls @ 200 mls/hr IV Q24H [facility] Last Admin: 06/16/16 13:30 Dose: 200 mls/hr Levothyroxine Sodium (Levothyroxine) 75 mcg PO ACBREAKFAST [facility] Last Admin: 06/17/16 06:13 Dose: 75 mcg Multivitamins (Thera) 1 each PO DAILY [facility] Last Admin: 06/16/16 09:44 Dose: Not Given Ondansetron HCl (Zofran) 4 mg IV Q6H PRN PRN Reason: Nausea/Vomiting Pantoprazole Sodium (Protonix) 40 mg PO DAILY@0700 [facility] Last Admin: 06/17/16 06:13 Dose: 40 mg Saccharomyces Boulardii (Florastor) 250 mg PO BID [facility] Last Admin: 06/16/16 20:54 Dose: 250 mg Senna/Docusate Sodium (Senna Plus) 1 tab PO BID PRN PRN Reason: Constipation Sodium Chloride (Saline Flush) 10 ml FLUSH ASDIRECTED PRN PRN Reason: Keep Vein Open Last Admin: 06/15/16 16:50 Dose: 10 ml Temazepam (Restoril) 15 mg PO BEDTIME PRN PRN Reason: Sleep Last Admin: 06/16/16 20:54 Dose: 15 mg Thiamine HCl (Vitamin B-1) 100 mg PO BEDTIME JESSIE Last Admin: 06/16/16 20:54 Dose: 100 mg Discontinued Medications Diphtheria/Tetanus/Acell Pertussis (Boostrix) 0.5 ml IM .ONCE ONE Stop: 06/16/16 13:01 Sodium Chloride (Normal Saline) 1,000 mls @ 999 mls/hr IV ONETIME ONE Stop: 06/15/16 17:32 Last Admin: 06/15/16 16:54 Dose: 999 mls/hr Levofloxacin/Dextrose 500 mg/ (Premix) 100 mls @ 100 mls/hr IV ONETIME ONE Stop: 06/15/16 19:18 Last Admin: 06/15/16 18:24 Dose: 100 mls/hr Levofloxacin/Dextrose 250 mg/ (Premix) 50 mls @ 50 mls/hr IV Q24H JESSIE Thiamine HCl 100 mg/ Sodium (Chloride) 101 mls @ 50 mls/hr IV ONETIME ONE Stop: 06/16/16 00:58 Last Admin: 06/16/16 00:05 Dose: 50 mls/hr Influenza Virus Vaccine (Fluzone/Fluarix 2015- Vaccine) 60 mcg IM .ONCE ONE Stop: 06/15/16 22:47 Pneumococcal 13-Valent Conj Vacc (Prevnar 13) 0.5 ml IM .ONCE ONE Stop: 06/16/16 13:02 - Exam General: alert, cooperative, no acute distress HEENT: Pupils equal, Pupils reactive, EOMI, Mucous membr. moist/pink Neck: supple, trachea midline Lungs: Clear to auscultation, Normal respiratory effort Cardiovascular: regular rate, regular rhythm Abdomen: bowel sounds present, soft, no tenderness, no distension (Female) Exam: Deferred Back Exam: normal inspection, decreased range of motion Extremities: no edema, normal pulses, no tenderness/swelling, no clubbing, no cyanosis, no calf tenderness Peripheral Pulses: 2+: dorsalis pedis (L), dorsalis pedis (R) Skin: warm, dry, intact Neurological: no new focal deficit Psy/Mental Status: alert, normal affect, normal mood - Problem List Review Problem List Initiated/Reviewed/Updated: Yes - My Orders Last 24 Hours: My Active Orders 06/16/16 09:00 Enoxaparin [Lovenox] 40 mg SUBCUT DAILY Multivitamins,Therapeutic [Thera] 1 each PO DAILY 06/16/16 13:01 Vaccines to be Administered [RC] PER UNIT ROUTINE 06/16/16 21:00 Thiamine [Vitamin B-1] 100 mg PO BEDTIME 06/18/16 05:11 BASIC METABOLIC PANEL,BMP [CHEM] AM C-REACTIVE PROTEIN [CHEM] AM CBC WITH AUTO DIFF [HEME] AM MAGNESIUM [CHEM] AM 06/19/16 05:11 BASIC METABOLIC PANEL,BMP [CHEM] AM C-REACTIVE PROTEIN [CHEM] AM CBC WITH AUTO DIFF [HEME] AM MAGNESIUM [CHEM] AM 06/20/16 05:11 BASIC METABOLIC PANEL,BMP [CHEM] AM C-REACTIVE PROTEIN [CHEM] AM CBC WITH AUTO DIFF [HEME] AM MAGNESIUM [CHEM] AM 06/21/16 05:11 BASIC METABOLIC PANEL,BMP [CHEM] AM C-REACTIVE PROTEIN [CHEM] AM CBC WITH AUTO DIFF [HEME] AM MAGNESIUM [CHEM] AM - Plan Plan:: Assessment/Plan: Acute: S/p Encephalopathy-She is alert and wake - Likely 2/2 Toxic/Metabolic - Has UTI/NS-Colitis - Treat underlying cause - Aspiration/Fall Precautions - She appears to be at baseline now Urinary Tract Infection - Risk factor: Incontinence and Prolonged Bed-Bound - UA pos- E. coli sensitive to Rocephin - Received initial ATB in ED - Continue Rocephin IV QD Non Specific-Colitis - No hx/o diverticulitis - CRP is 13--> 13 - Consider adding Flagyl IV 500 mg Q8 if no response to treatment - She is tolerating diet - Hold off Flagyl and Continue Probiotic Generalized Weakness - Likely 2/2 Above - Thyroid Panel normal - Vit D level pending - Continue PT/OT for deconditioning Self Neglect - She lives - Appeared somewhat disheveled - Has not taken shower for ? weeks and months - Toenails: long and untrimmed- consult to Podiatry, Dr. Jacinto Recurrent falls at home with left sided rib pain and low back pain - Rib xray and lumbar spine xray today-- both negative for acute findings - Continue PT/OT - Consider SNF for rehab stay Chronic: GERD Hypothyroidism Plan: She is clinically stable Continue current treatment Routine AM Labs Resume Home Meds Continue PT/OT SW/CM for d/c planning Spiritual Care consult Recommend [facility] placement Code Status: Full code
[2016-06-17] MEDS: Saccharomyces Boulardii (Probiotic) 250 MG Cap PO SCH ×2 (09:39→20:40)
[2016-06-17] MEDS: Multivitamins,Therapeutic Tab PO SCH (09:39)
[2016-06-17] MEDS: Enoxaparin 40 MG/0.4 ML Syringe SUBCUT SCH (09:39)
[2016-06-17] MEDS: cefTRIAXone 1 GM in Sodium Chloride 0.9% 100 ML IV SCH (13:02)
[2016-06-17] MEDS: Acetaminophen/HYDROcodone 325-5 MG Tab PO PRN ×2 (16:02→21:43)
[2016-06-17] MEDS: Thiamine 100 MG Tab PO SCH (20:40)
[2016-06-18] MEDS: Levothyroxine 75 MCG Tab PO SCH (06:49)
[2016-06-18] MEDS: Pantoprazole 40 MG Tab.CR PO SCH (06:49)
--- NOTE | 2016-06-18 07:40 | PCM.PN ---
- General Info Date of Service: 06/18/16 Admission Dx/Problem (Free Text): Admission Diagnosis/Problem Admission Diagnosis/Problem UTI Subjective Update: Follow Up Functional Status: Reports: tolerating diet, ambulating, urinating. Denies: pain controlled, new symptoms Pain Score: 10 - Review of Systems General: Denies: fever, weakness, fatigue, malaise, chills HEENT: Reports: no symptoms Pulmonary: Denies: shortness of breath Cardiovascular: Denies: chest pain, palpitations, dyspnea on exertion Gastrointestinal: Denies: Abdominal pain, Nausea, Vomiting Genitourinary: Reports: no symptoms Musculoskeletal: Reports: other (rib/flank pain R>L) Skin: Denies: cyanosis, jaundice, mottled, bruising Neurological: Denies: confusion, weakness Psychiatric: Denies: depression, anxiety, hallucinations Systems Review Comment:: No overnight issues. She is well rested. Still complaints of flank pain more on right side. 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 She denies any other new complaints. She afebrile w/o leukocytosis. - Patient Data Vitals - most recent: Last Vital Signs Temp 37.0 C 06/18/16 04:05 Pulse 91 06/18/16 04:05 Resp 18 06/18/16 04:05 BP 130/53 L 06/18/16 04:05 Pulse Ox 92 L 06/18/16 04:05 Weight - most recent: 87.77 kg I&O - last 24 hours: Intake & Output 06/17/16 06/18/16 06/18/16 22:59 06:59 14:59 Intake Total 2691 1564 Output Total 400 Balance 2691 1164 Lab Results last 24 hrs: Laboratory Results - last 24 hr 06/18/16 Range/Units 06:30 WBC 7.83 (3.98-10.04) K/mm3 RBC 3.80 L (3.98-5.22) M/mm3 Hgb 11.5 (11.2-15.7) gm/L Hct 35.1 (34.1-44.9) % MCV 92.4 (79.4-94.8) fl MCH 30.3 (25.6-32.2) pg MCHC 32.8 (32.2-35.5) g/dl RDW Std Deviation 46.1 (36.4-46.3) fL Plt Count 359 (182-369) K/mm3 MPV 8.9 L (9.4-12.3) fl Neut % (Auto) 69.4 (34.0-71.1) % Lymph % (Auto) 16.6 L (19.3-51.7) % Allen % (Auto) 9.3 (4.7-12.5) % Eos % (Auto) 3.3 (0.7-5.8) Baso % (Auto) 0.6 (0.1-1.2) % Neut # 5.43 (1.56-6.13) K/mm3 Lymph # 1.30 (1.18-3.74) K/mm3 Allen # 0.73 H (0.24-0.36) K/mm3 Eos # 0.26 (0.04-0.36) K/mm3 Baso # 0.05 (0.01-0.08) K/mm3 [place] Results last 24 hrs: Microbiology 06/16/16 07:24 Aerobic Blood Culture - Preliminary Blood - Venous NO GROWTH AFTER 2 DAYS Anaerobic Blood Culture - Preliminary NO GROWTH AFTER 2 DAYS 06/16/16 07:30 Aerobic Blood Culture - Preliminary Blood - Venous - Lab Draw NO GROWTH AFTER 2 DAYS Anaerobic Blood Culture - Preliminary NO GROWTH AFTER 2 DAYS Med Orders - Current: Current Medications Acetaminophen (Tylenol) 650 mg PO Q4H PRN PRN Reason: Pain (Mild 1-3)/fever Acetaminophen/Hydrocodone Bitart ([place] 325-5 Mg) 1 tab PO Q4H PRN PRN Reason: Pain (moderate 4-6) Last Admin: 06/17/16 21:43 Dose: 1 tab Albuterol (Proventil Neb Soln) 2.5 mg NEB Q2H PRN PRN Reason: Shortness Of Breath/wheezing Bisacodyl (Dulcolax) 5 mg PO DAILY PRN PRN Reason: Constipation Docusate Sodium (Colace) 100 mg PO BID PRN PRN Reason: Constipation Enoxaparin Sodium (Lovenox) 40 mg SUBCUT DAILY JESSIE Last Admin: 06/17/16 09:39 Dose: 40 mg Hydromorphone HCl (Dilaudid) 0.25 mg IVPUSH Q2H PRN PRN Reason: Pain (severe 7-10) Dextrose/Sodium Chloride (Dextrose 5%-1/2 Ns) 1,000 mls @ 125 mls/hr IV ASDIRECTED [facility] Last Admin: 06/17/16 23:35 Dose: 125 mls/hr Promethazine HCl 12.5 mg/ (Sodium Chloride) 50.5 mls @ 100 mls/hr IV Q6H PRN PRN Reason: Nausea/Vomiting Ceftriaxone Sodium 1 gm/ (Sodium Chloride) 100 mls @ 200 mls/hr IV Q24H [facility] Last Admin: 06/17/16 13:02 Dose: 200 mls/hr Levothyroxine Sodium (Levothyroxine) 75 mcg PO ACBREAKFAST [facility] Last Admin: 06/18/16 06:49 Dose: 75 mcg Multivitamins (Thera) 1 each PO DAILY [facility] Last Admin: 06/17/16 09:39 Dose: 1 each Ondansetron HCl (Zofran) 4 mg IV Q6H PRN PRN Reason: Nausea/Vomiting Pantoprazole Sodium (Protonix) 40 mg PO DAILY@0700 [facility] Last Admin: 06/18/16 06:49 Dose: 40 mg Saccharomyces Boulardii (Florastor) 250 mg PO BID [facility] Last Admin: 06/17/16 20:40 Dose: 250 mg Senna/Docusate Sodium (Senna Plus) 1 tab PO BID PRN PRN Reason: Constipation Sodium Chloride (Saline Flush) 10 ml FLUSH ASDIRECTED PRN PRN Reason: Keep Vein Open Last Admin: 06/15/16 16:50 Dose: 10 ml Temazepam (Restoril) 15 mg PO BEDTIME PRN PRN Reason: Sleep Last Admin: 06/16/16 20:54 Dose: 15 mg Thiamine HCl (Vitamin B-1) 100 mg PO BEDTIME [facility] Last Admin: 06/17/16 20:40 Dose: 100 mg Discontinued Medications Diphtheria/Tetanus/Acell Pertussis (Boostrix) 0.5 ml IM .ONCE ONE Stop: 06/16/16 13:01 Sodium Chloride (Normal Saline) 1,000 mls @ 999 mls/hr IV ONETIME ONE Stop: 06/15/16 17:32 Last Admin: 06/15/16 16:54 Dose: 999 mls/hr Levofloxacin/Dextrose 500 mg/ (Premix) 100 mls @ 100 mls/hr IV ONETIME ONE Stop: 06/15/16 19:18 Last Admin: 06/15/16 18:24 Dose: 100 mls/hr Levofloxacin/Dextrose 250 mg/ (Premix) 50 mls @ 50 mls/hr IV Q24H [facility]ESS[facility] Thiamine HCl 100 mg/ Sodium (Chloride) 101 mls @ 50 mls/hr IV ONETIME ONE Stop: 06/16/16 00:58 Last Admin: 06/16/16 00:05 Dose: 50 mls/hr Influenza Virus Vaccine (Fluzone/Fluarix Vaccine) 60 mcg IM .ONCE ONE Stop: 06/15/16 22:47 Pneumococcal 13-Valent Conj Vacc (Prevnar 13) 0.5 ml IM .ONCE ONE Stop: 06/16/16 13:02 - Exam General: alert, oriented, cooperative, no acute distress HEENT: Pupils equal, Pupils reactive, EOMI, Mucous membr. moist/pink Neck: supple, trachea midline, no JVD Lungs: Clear to auscultation, Normal respiratory effort Cardiovascular: regular rate, regular rhythm Abdomen: bowel sounds present, soft, no tenderness, no distension (Female) Exam: Deferred Back Exam: decreased range of motion Extremities: no edema, normal pulses, no tenderness/swelling, no clubbing, no cyanosis, no calf tenderness Peripheral Pulses: 2+: dorsalis pedis (L), dorsalis pedis (R) Skin: warm, dry, intact Neurological: no new focal deficit Psy/Mental Status: alert, normal affect, normal mood - Problem List Review Problem List Initiated/Reviewed/Updated: Yes - My Orders Last 24 Hours: My Active Orders 06/18/16 06:30 BASIC METABOLIC PANEL,BMP [CHEM] AM C-REACTIVE PROTEIN [CHEM] AM MAGNESIUM [CHEM] AM 06/19/16 05:11 BASIC METABOLIC PANEL,BMP [CHEM] AM C-REACTIVE PROTEIN [CHEM] AM CBC WITH AUTO DIFF [HEME] AM MAGNESIUM [CHEM] AM 06/20/16 05:11 BASIC METABOLIC PANEL,BMP [CHEM] AM C-REACTIVE PROTEIN [CHEM] AM CBC WITH AUTO DIFF [HEME] AM MAGNESIUM [CHEM] AM 06/21/16 05:11 BASIC METABOLIC PANEL,BMP [CHEM] AM C-REACTIVE PROTEIN [CHEM] AM CBC WITH AUTO DIFF [HEME] AM MAGNESIUM [CHEM] AM - Plan Plan:: Assessment/Plan: Acute: Urinary Tract Infection - Risk factor: Incontinence and Prolonged Bed-Bound - UA pos- E. coli sensitive to Rocephin - Received initial ATB in ED - Continue Rocephin IV QD Non Specific-Colitis - No hx/o diverticulitis - CRP is 13--> 13 --> 10.9 - Consider adding Flagyl IV 500 mg Q8 if no response to treatment - She is tolerating diet - Hold off Flagyl and Continue Probiotic Generalized Weakness - Likely 2/2 Above - Thyroid Panel normal - Vit D level pending - Improveed - Continue PT/OT for deconditioning Self Neglect - She lives alone - Appeared somewhat disheveled - Has not taken shower for ? weeks and months - Toenails: long and untrimmed- consult to Podiatry, Dr. Jacinto Recurrent Falls at home with left sided rib pain and low back pain - Rib xray and lumbar spine xray today-- both negative for acute findings - Advised Pain to ask pain meds as needed - Continue PT/OT - Consider SNF for rehab stay Resolved: S/p Encephalopathy-She is alert and wake - Likely 2/2 Toxic/Metabolic - Has UTI/NS-Colitis - Treat underlying cause - Aspiration/Fall Precautions - She appears to be at baseline now Chronic: GERD Hypothyroidism Plan: She remains clinically stable Continue current treatment Routine AM Labs Continue PT/OT SW/CM for d/c planning Saline Lock Ambulate as tolerated TID-QID Spiritual Care consult Recommend [facility] placement Code Status: Full code
[2016-06-18] MEDS: Naproxen 500 MG Tab PO SCH ×2 (09:49→20:55)
[2016-06-18] MEDS: Acetaminophen/HYDROcodone 325-5 MG Tab PO PRN (09:50)
[2016-06-18] MEDS: Multivitamins,Therapeutic Tab PO SCH (09:50)
[2016-06-18] MEDS: Enoxaparin 40 MG/0.4 ML Syringe SUBCUT SCH (09:50)
[2016-06-18] MEDS: cefTRIAXone 1 GM in Sodium Chloride 0.9% 100 ML IV SCH (12:24)
[2016-06-18] MEDS: Saccharomyces Boulardii (Probiotic) 250 MG Cap PO SCH ×2 (12:24→20:57)
[2016-06-18] MEDS ORDERED: Sodium Chloride 0.9% 10 ML Syringe FLUSH PRN (13:17)
[2016-06-18] MEDS: Thiamine 100 MG Tab PO SCH (20:56)
[2016-06-19] MEDS: Pantoprazole 40 MG Tab.CR PO SCH (06:47)
[2016-06-19] MEDS: Levothyroxine 75 MCG Tab PO SCH (06:47)
--- NOTE | 2016-06-19 08:35 | PCM.PN ---
- General Info Date of Service: 06/19/16 Admission Dx/Problem (Free Text): Admission Diagnosis/Problem Admission Diagnosis/Problem UTI Subjective Update: Follow Up Functional Status: Reports: pain controlled, tolerating diet, ambulating, urinating. Denies: new symptoms - Review of Systems General: Denies: fever, weakness, fatigue, malaise, chills HEENT: Reports: no symptoms Pulmonary: Denies: shortness of breath Cardiovascular: Denies: chest pain, palpitations, dyspnea on exertion, edema Gastrointestinal: Reports: Flatus. Denies: Abdominal pain, Constipation, Decreased appetite, Diarrhea, Difficulty swallowing, Nausea, Vomiting Genitourinary: Reports: no symptoms Musculoskeletal: Denies: no symptoms Skin: Denies: cyanosis, jaundice, pruritis, rash Neurological: Denies: confusion, weakness Psychiatric: Denies: depression, anxiety, hallucinations Systems Review Comment:: No overnight or acute issues. She is doing relatively well. She has no new complaints. - Patient Data Vitals - most recent: Last Vital Signs Temp 36.8 C 06/19/16 04:08 Pulse 95 06/19/16 04:08 Resp 20 06/19/16 04:08 BP 130/76 06/19/16 04:08 Pulse Ox 91 L 06/19/16 04:08 Weight - most recent: 88.082 kg I&O - last 24 hours: Intake & Output 06/18/16 06/19/16 06/19/16 22:59 06:59 14:59 Intake Total 1382 200 Output Total 100 Balance 1282 200 Lab Results last 24 hrs: Laboratory Results - last 24 hr 06/19/16 06/19/16 Range/Units 06:04 06:04 WBC 7.17 (3.98-10.04) K/mm3 RBC 3.52 L (3.98-5.22) M/mm3 Hgb 10.7 L (11.2-15.7) gm/L Hct 32.4 L (34.1-44.9) % MCV 92.0 (79.4-94.8) fl MCH 30.4 (25.6-32.2) pg MCHC 33.0 (32.2-35.5) g/dl RDW Std Deviation 45.0 (36.4-46.3) fL Plt Count 349 (182-369) K/mm3 MPV 9.2 L (9.4-12.3) fl Neut % (Auto) 68.7 (34.0-71.1) % Lymph % (Auto) 17.7 L (19.3-51.7) % [place] % (Auto) 8.1 (4.7-12.5) % Eos % (Auto) 4.3 (0.7-5.8) Baso % (Auto) 0.4 (0.1-1.2) % Neut # 4.92 (1.56-6.13) K/mm3 Lymph # 1.27 (1.18-3.74) K/mm3 [place] # 0.58 H (0.24-0.36) K/mm3 Eos # 0.31 (0.04-0.36) K/mm3 Baso # 0.03 (0.01-0.08) K/mm3 Sodium 137 (136-145) mEq/L Potassium 4.1 (3.5-5.1) mEq/L Chloride 104 (98-107) mEq/L Carbon Dioxide 25 (21-32) mEq/L Anion Gap 12.1 (5-15) BUN 18 (7-18) mg/dL Creatinine 0.9 (0.55-1.02) mg/dL Est Cr Clr Drug Dosing 43.63 mL/min Estimated GFR (MDRD) 59 (>60) mL/min BUN/Creatinine Ratio 20.0 H (14-18) Glucose 98 (83-115) mg/dL Calcium 8.8 (8.5-10.1) mg/dL Magnesium 2.0 (1.8-2.4) mg/dl C-Reactive Protein 9.6 H* (<1.0) mg/dL [place] Results last 24 hrs: Microbiology 06/16/16 07:24 Aerobic Blood Culture - Preliminary Blood - Venous NO GROWTH AFTER 3 DAYS Anaerobic Blood Culture - Preliminary NO GROWTH AFTER 3 DAYS 06/16/16 07:30 Aerobic Blood Culture - Preliminary Blood - Venous - Lab Draw NO GROWTH AFTER 3 DAYS Anaerobic Blood Culture - Preliminary NO GROWTH AFTER 3 DAYS Med Orders - Current: Current Medications Acetaminophen (Tylenol) 650 mg PO Q4H PRN PRN Reason: Pain (Mild 1-3)/fever Acetaminophen/Hydrocodone Bitart ([place] 325-5 Mg) 1 tab PO Q4H PRN PRN Reason: Pain (moderate 4-6) Last Admin: 06/18/16 09:50 Dose: 1 tab Albuterol (Proventil Neb Soln) 2.5 mg NEB Q2H PRN PRN Reason: Shortness Of Breath/wheezing Bisacodyl (Dulcolax) 5 mg PO DAILY PRN PRN Reason: Constipation Docusate Sodium (Colace) 100 mg PO BID PRN PRN Reason: Constipation Enoxaparin Sodium (Lovenox) 40 mg SUBCUT DAILY [facility] Last Admin: 06/18/16 09:50 Dose: 40 mg Hydromorphone HCl (Dilaudid) 0.25 mg IVPUSH Q2H PRN PRN Reason: Pain (severe 7-10) Promethazine HCl 12.5 mg/ (Sodium Chloride) 50.5 mls @ 100 mls/hr IV Q6H PRN PRN Reason: Nausea/Vomiting Ceftriaxone Sodium 1 gm/ (Sodium Chloride) 100 mls @ 200 mls/hr IV Q24H [facility] Last Admin: 06/18/16 12:24 Dose: 200 mls/hr Levothyroxine Sodium (Levothyroxine) 75 mcg PO ACBREAKFAST [facility] Last Admin: 06/19/16 06:47 Dose: 75 mcg Multivitamins (Thera) 1 each PO DAILY [facility] Last Admin: 06/18/16 09:50 Dose: 1 each Naproxen (Naprosyn) 500 mg PO Q12HR [facility] Last Admin: 06/18/16 20:55 Dose: 500 mg Ondansetron HCl (Zofran) 4 mg IV Q6H PRN PRN Reason: Nausea/Vomiting Pantoprazole Sodium (Protonix) 40 mg PO DAILY@0700 [facility] Last Admin: 06/19/16 06:47 Dose: 40 mg Saccharomyces Boulardii (Florastor) 250 mg PO BID [facility] Last Admin: 06/18/16 20:57 Dose: Not Given Senna/Docusate Sodium (Senna Plus) 1 tab PO BID PRN PRN Reason: Constipation Sodium Chloride (Saline Flush) 10 ml FLUSH ASDIRECTED PRN PRN Reason: Keep Vein Open Last Admin: 06/15/16 16:50 Dose: 10 ml Sodium Chloride (Saline Flush) 10 ml FLUSH ASDIRECTED PRN PRN Reason: Keep Vein Open Temazepam (Restoril) 15 mg PO BEDTIME PRN PRN Reason: Sleep Last Admin: 06/16/16 20:54 Dose: 15 mg Thiamine HCl (Vitamin B-1) 100 mg PO BEDTIME [facility] Last Admin: 06/18/16 20:56 Dose: 100 mg Discontinued Medications Diphtheria/Tetanus/Acell Pertussis (Boostrix) 0.5 ml IM .ONCE ONE Stop: 06/16/16 13:01 Sodium Chloride (Normal Saline) 1,000 mls @ 999 mls/hr IV ONETIME ONE Stop: 06/15/16 17:32 Last Admin: 06/15/16 16:54 Dose: 999 mls/hr Levofloxacin/Dextrose 500 mg/ (Premix) 100 mls @ 100 mls/hr IV ONETIME ONE Stop: 06/15/16 19:18 Last Admin: 06/15/16 18:24 Dose: 100 mls/hr Dextrose/Sodium Chloride (Dextrose 5%-1/2 Ns) 1,000 mls @ 125 mls/hr IV ASDIRECTED [facility] Last Admin: 06/17/16 23:35 Dose: 125 mls/hr Levofloxacin/Dextrose 250 mg/ (Premix) 50 mls @ 50 mls/hr IV Q24H [facility] Thiamine HCl 100 mg/ Sodium (Chloride) 101 mls @ 50 mls/hr IV ONETIME ONE Stop: 06/16/16 00:58 Last Admin: 06/16/16 00:05 Dose: 50 mls/hr Influenza Virus Vaccine (Fluzone/Fluarix 2015- Vaccine) 60 mcg IM .ONCE ONE Stop: 06/15/16 22:47 Pneumococcal 13-Valent Conj Vacc (Prevnar 13) 0.5 ml IM .ONCE ONE Stop: 06/16/16 13:02 - Exam General: alert, cooperative, no acute distress HEENT: Pupils equal, Pupils reactive, EOMI, Mucous membr. moist/pink Neck: supple, trachea midline, no JVD, no thyromegaly Lungs: Clear to auscultation, Normal respiratory effort Cardiovascular: regular rate, regular rhythm Abdomen: bowel sounds present, soft, no tenderness, no distension (Female) Exam: Deferred Back Exam: normal inspection, decreased range of motion Extremities: no edema, normal pulses, no tenderness/swelling, no clubbing, no cyanosis, no calf tenderness Skin: warm, dry, intact Neurological: no new focal deficit Psy/Mental Status: alert, normal affect, normal mood - Problem List Review Problem List Initiated/Reviewed/Updated: Yes - My Orders Last 24 Hours: My Active Orders 06/18/16 09:00 Naproxen [Naprosyn] 500 mg PO Q12HR 06/18/16 09:26 Incentive Spirometry [RT Incentive Spirometry] [RC] ASDIRECTED 06/18/16 13:17 Sodium Chloride 0.9% [Saline Flush] 10 ml FLUSH ASDIRECTED PRN Saline Lock Insert [OM.PC] Routine 06/20/16 05:11 BASIC METABOLIC PANEL,BMP [CHEM] AM C-REACTIVE PROTEIN [CHEM] AM CBC WITH AUTO DIFF [HEME] AM MAGNESIUM [CHEM] AM 06/21/16 05:11 BASIC METABOLIC PANEL,BMP [CHEM] AM C-REACTIVE PROTEIN [CHEM] AM CBC WITH AUTO DIFF [HEME] AM MAGNESIUM [CHEM] AM - Plan Plan:: Assessment/Plan: Acute: Urinary Tract Infection - Risk factor: Incontinence and Prolonged Bed-Bound - UA pos- E. coli sensitive to Rocephin - Received initial ATB in ED - Will d/c IV Rocephin daily after receiving day 5 of ATB Non Specific-Colitis - No hx/o diverticulitis - CRP is 13--> 13 --> 10.9 - Consider adding Flagyl IV 500 mg Q8 if no response to treatment - She is tolerating diet - Hold off Flagyl and Continue Probiotic Generalized Weakness - Likely 2/2 Above - Thyroid Panel normal - Vit D level pending - Greatly Improved - Continue PT/OT for deconditioning Self Neglect - She lives alone - Appeared somewhat disheveled - Has not taken shower for ? weeks and months - Toenails: long and untrimmed- consult to Podiatry, Dr. Jacinto Recurrent Falls at home with left sided rib pain and low back pain - Rib xray and lumbar spine xray today-- both negative for acute findings - Advised Pain to ask pain meds as needed - Continue PT/OT - Consider SNF for rehab stay Resolved: S/p Encephalopathy-She is alert and wake - Likely 2/2 Toxic/Metabolic - Has UTI/NS-Colitis - Treat underlying cause - Aspiration/Fall Precautions - She appears to be at baseline now Chronic: GERD Hypothyroidism Plan: She remains clinically stable Continue current treatment Routine AM Labs Continue PT/OT SW/CM for d/c planning Ambulate as tolerated TID-QID Spiritual Care consult Recommend NH placement Code Status: Full code LOS anticipate > 96 hrs pending NH placement
[2016-06-19] MEDS: Saccharomyces Boulardii (Probiotic) 250 MG Cap PO SCH ×2 (10:32→20:29)
[2016-06-19] MEDS: Naproxen 500 MG Tab PO SCH ×2 (10:32→20:30)
[2016-06-19] MEDS: Multivitamins,Therapeutic Tab PO SCH (10:32)
[2016-06-19] MEDS: Enoxaparin 40 MG/0.4 ML Syringe SUBCUT SCH (10:32)
[2016-06-19] MEDS: cefTRIAXone 1 GM in Sodium Chloride 0.9% 100 ML IV SCH (14:23)
[2016-06-19] MEDS: Acetaminophen/HYDROcodone 325-5 MG Tab PO PRN (20:31)
[2016-06-19] MEDS: Thiamine 100 MG Tab PO SCH (20:31)
[2016-06-20] MEDS: Pantoprazole 40 MG Tab.CR PO SCH (06:39)
[2016-06-20] MEDS: Levothyroxine 75 MCG Tab PO SCH (06:39)
[2016-06-20] MEDS: Saccharomyces Boulardii (Probiotic) 250 MG Cap PO SCH ×2 (09:02→20:00)
[2016-06-20] MEDS: Enoxaparin 40 MG/0.4 ML Syringe SUBCUT SCH (09:02)
[2016-06-20] MEDS: Multivitamins,Therapeutic Tab PO SCH (09:03)
[2016-06-20] MEDS: Naproxen 500 MG Tab PO SCH ×2 (09:03→20:00)
--- NOTE | 2016-06-20 14:24 | PCM.PN ---
- General Info Date of Service: 06/20/16 Admission Dx/Problem (Free Text): Admission Diagnosis/Problem Admission Diagnosis/Problem UTI Subjective Update: Follow Up Functional Status: Reports: pain controlled, tolerating diet, ambulating, urinating. Denies: new symptoms - Review of Systems General: Denies: fever, weakness, fatigue, malaise, chills HEENT: Reports: no symptoms Pulmonary: Denies: shortness of breath Cardiovascular: Denies: chest pain Gastrointestinal: Denies: Abdominal pain, Nausea, Vomiting Genitourinary: Reports: no symptoms Musculoskeletal: Reports: no symptoms Skin: Denies: bruising, pruritis, rash Neurological: Denies: confusion Psychiatric: Denies: depression, anxiety, hallucinations Systems Review Comment:: No overnight or acute issues. She is doing relatively well. - Patient Data Vitals - most recent: Last Vital Signs Temp 36.9 C 06/20/16 07:59 Pulse 87 06/20/16 07:59 Resp 18 06/20/16 07:59 BP 133/65 06/20/16 07:59 Pulse Ox 94 L 06/20/16 07:59 Weight - most recent: 87.589 kg I&O - last 24 hours: Intake & Output 06/19/16 06/20/16 06/20/16 22:59 06:59 14:59 Intake Total 960 1250 430 Output Total 750 Balance 960 500 430 Lab Results last 24 hrs: Laboratory Results - last 24 hr 06/20/16 06/20/16 Range/Units 06:48 06:48 WBC 6.97 (3.98-10.04) K/mm3 RBC 3.57 L (3.98-5.22) M/mm3 Hgb 10.7 L (11.2-15.7) gm/L Hct 32.8 L (34.1-44.9) % MCV 91.9 (79.4-94.8) fl MCH 30.0 (25.6-32.2) pg MCHC 32.6 (32.2-35.5) g/dl RDW Std Deviation 46.1 (36.4-46.3) fL Plt Count 357 (182-369) K/mm3 MPV 8.6 L (9.4-12.3) fl Neut % (Auto) 62.3 (34.0-71.1) % Lymph % (Auto) 22.5 (19.3-51.7) % [place] % (Auto) 8.5 (4.7-12.5) % Eos % (Auto) 4.9 (0.7-5.8) Baso % (Auto) 0.9 (0.1-1.2) % Neut # 4.35 (1.56-6.13) K/mm3 Lymph # 1.57 (1.18-3.74) K/mm3 [place] # 0.59 H (0.24-0.36) K/mm3 Eos # 0.34 (0.04-0.36) K/mm3 Baso # 0.06 (0.01-0.08) K/mm3 Sodium 138 (136-145) mEq/L Potassium 4.3 (3.5-5.1) mEq/L Chloride 104 (98-107) mEq/L Carbon Dioxide 25 (21-32) mEq/L Anion Gap 13.3 (5-15) BUN 22 H (7-18) mg/dL Creatinine 1.0 (0.55-1.02) mg/dL Est Cr Clr Drug Dosing 39.27 mL/min Estimated GFR (MDRD) 53 (>60) mL/min BUN/Creatinine Ratio 22.0 H (14-18) Glucose 100 (83-115) mg/dL Calcium 8.7 (8.5-10.1) mg/dL Magnesium 2.0 (1.8-2.4) mg/dl C-Reactive Protein 6.7 H* (<1.0) mg/dL [place] Results last 24 hrs: Microbiology 06/16/16 07:24 Aerobic Blood Culture - Preliminary Blood - Venous NO GROWTH AFTER 4 DAYS Anaerobic Blood Culture - Preliminary NO GROWTH AFTER 4 DAYS 06/16/16 07:30 Aerobic Blood Culture - Preliminary Blood - Venous - Lab Draw NO GROWTH AFTER 4 DAYS Anaerobic Blood Culture - Preliminary NO GROWTH AFTER 4 DAYS Med Orders - Current: Current Medications Acetaminophen (Tylenol) 650 mg PO Q4H PRN PRN Reason: Pain (Mild 1-3)/fever Acetaminophen/Hydrocodone Bitart ([place] 325-5 Mg) 1 tab PO Q4H PRN PRN Reason: Pain (moderate 4-6) Last Admin: 06/19/16 20:31 Dose: 1 tab Albuterol (Proventil Neb Soln) 2.5 mg NEB Q2H PRN PRN Reason: Shortness Of Breath/wheezing Bisacodyl (Dulcolax) 5 mg PO DAILY PRN PRN Reason: Constipation Docusate Sodium (Colace) 100 mg PO BID PRN PRN Reason: Constipation Enoxaparin Sodium (Lovenox) 40 mg SUBCUT DAILY [facility] Last Admin: 06/20/16 09:02 Dose: 40 mg Hydromorphone HCl (Dilaudid) 0.25 mg IVPUSH Q2H PRN PRN Reason: Pain (severe 7-10) Promethazine HCl 12.5 mg/ (Sodium Chloride) 50.5 mls @ 100 mls/hr IV Q6H PRN PRN Reason: Nausea/Vomiting Levothyroxine Sodium (Levothyroxine) 75 mcg PO ACBREAKFAST [facility] Last Admin: 06/20/16 06:39 Dose: 75 mcg Multivitamins (Thera) 1 each PO DAILY [facility] Last Admin: 06/20/16 09:03 Dose: 1 each Naproxen (Naprosyn) 500 mg PO Q12HR [facility] Last Admin: 06/20/16 09:03 Dose: 500 mg Ondansetron HCl (Zofran) 4 mg IV Q6H PRN PRN Reason: Nausea/Vomiting Pantoprazole Sodium (Protonix) 40 mg PO DAILY@0700 [facility] Last Admin: 06/20/16 06:39 Dose: 40 mg Saccharomyces Boulardii (Florastor) 250 mg PO BID [facility] Last Admin: 06/20/16 09:02 Dose: 250 mg Senna/Docusate Sodium (Senna Plus) 1 tab PO BID PRN PRN Reason: Constipation Sodium Chloride (Saline Flush) 10 ml FLUSH ASDIRECTED PRN PRN Reason: Keep Vein Open Last Admin: 06/15/16 16:50 Dose: 10 ml Sodium Chloride (Saline Flush) 10 ml FLUSH ASDIRECTED PRN PRN Reason: Keep Vein Open Temazepam (Restoril) 15 mg PO BEDTIME PRN PRN Reason: Sleep Last Admin: 06/16/16 20:54 Dose: 15 mg Thiamine HCl (Vitamin B-1) 100 mg PO BEDTIME [facility] Last Admin: 06/19/16 20:31 Dose: 100 mg Discontinued Medications Diphtheria/Tetanus/Acell Pertussis (Boostrix) 0.5 ml IM .ONCE ONE Stop: 06/16/16 13:01 Sodium Chloride (Normal Saline) 1,000 mls @ 999 mls/hr IV ONETIME ONE Stop: 06/15/16 17:32 Last Admin: 06/15/16 16:54 Dose: 999 mls/hr Levofloxacin/Dextrose 500 mg/ (Premix) 100 mls @ 100 mls/hr IV ONETIME ONE Stop: 06/15/16 19:18 Last Admin: 06/15/16 18:24 Dose: 100 mls/hr Dextrose/Sodium Chloride (Dextrose 5%-1/2 Ns) 1,000 mls @ 125 mls/hr IV ASDIRECTED [facility] Last Admin: 06/17/16 23:35 Dose: 125 mls/hr Levofloxacin/Dextrose 250 mg/ (Premix) 50 mls @ 50 mls/hr IV Q24H [facility] Thiamine HCl 100 mg/ Sodium (Chloride) 101 mls @ 50 mls/hr IV ONETIME ONE Stop: 06/16/16 00:58 Last Admin: 06/16/16 00:05 Dose: 50 mls/hr Ceftriaxone Sodium 1 gm/ (Sodium Chloride) 100 mls @ 200 mls/hr IV Q24H [facility] Stop: 06/19/16 23:59 Last Admin: 06/19/16 14:23 Dose: 200 mls/hr Influenza Virus Vaccine (Fluzone/Fluarix 2015- Vaccine) 60 mcg IM .ONCE ONE Stop: 06/15/16 22:47 Pneumococcal 13-Valent Conj Vacc (Prevnar 13) 0.5 ml IM .ONCE ONE Stop: 06/16/16 13:02 - Exam General: alert, oriented, cooperative, no acute distress HEENT: Pupils equal, Pupils reactive, EOMI, Mucous membr. moist/pink Neck: supple, trachea midline, no JVD, no thyromegaly Lungs: Clear to auscultation, Normal respiratory effort Cardiovascular: regular rate, regular rhythm Abdomen: bowel sounds present, soft, no tenderness, no distension (Female) Exam: Deferred Back Exam: normal inspection, decreased range of motion Extremities: no edema, normal pulses, no tenderness/swelling, no clubbing, no cyanosis, no calf tenderness Skin: warm, dry, intact Neurological: no new focal deficit Psy/Mental Status: alert, normal affect, normal mood - Problem List Review Problem List Initiated/Reviewed/Updated: Yes - My Orders Last 24 Hours: My Active Orders 06/21/16 05:11 BASIC METABOLIC PANEL,BMP [CHEM] AM C-REACTIVE PROTEIN [CHEM] AM CBC WITH AUTO DIFF [HEME] AM MAGNESIUM [CHEM] AM - Plan Plan:: Assessment/Plan: Acute: S/p Urinary Tract Infection - Risk factor: Incontinence and Prolonged Bed-Bound - UA pos- E. coli sensitive to Rocephin - Received initial ATB in ED - Will d/c IV Rocephin daily after receiving day 5 of ATB Non Specific-Colitis - No hx/o diverticulitis - CRP is 13--> 13 --> 10.9--> 6. - Consider adding Flagyl IV 500 mg Q8 if no response to treatment - She is tolerating diet - Hold off Flagyl and Continue Probiotic - No GI issues Generalized Weakness - Likely 2/2 Above - Thyroid Panel normal - Vit D level pending - Greatly Improved - Continue PT/OT for deconditioning Self Neglect - She lives alone - Appeared somewhat disheveled - Has not taken shower for ? weeks and months - Toenails: long and untrimmed- consult to Podiatry, Dr. Jacinto Recurrent Falls at home with left sided rib pain and low back pain - Rib xray and lumbar spine xray today-- both negative for acute findings - Advised Pain to ask pain meds as needed - Continue PT/OT - Consider SNF for rehab stay Mild Memory Impairment - Cog eval: Do not help 24 hr care - Resolved: S/p Encephalopathy-She is alert and wake - Likely 2/2 Toxic/Metabolic - Has UTI/NS-Colitis - Treat underlying cause - Aspiration/Fall Precautions - She appears to be at baseline now Chronic: GERD Hypothyroidism Plan: She remains clinically stable Continue current treatment Routine AM Labs Continue PT/OT SW/CM for d/c planning Recommend NH placement in AM Code Status: Full code LOS anticipate > 96 hrs pending NH placement Spoke to Dr. Capone in [place] who will be accepting physician for her.
[2016-06-20] MEDS: Temazepam 15 MG Cap PO PRN (20:00)
[2016-06-20] MEDS: Thiamine 100 MG Tab PO SCH (20:00)
[2016-06-21] MEDS: Levothyroxine 75 MCG Tab PO SCH (06:22)
[2016-06-21] MEDS: Pantoprazole 40 MG Tab.CR PO SCH (06:22)
--- NOTE | 2016-06-21 06:45 | PCM.DCSUM1 ---
Discharge Summary - Hospital Course Free Text/Narrative:: This is an 86 yo elderly white female with past medical hx/o GERD and Hypothyrodism who comes in for evaluation of worsening weakness associated with increased confusion for over a week now. Per son, she appears more confused than usual. Patient lives alone, mostly in bed and now unable to get out of bed due to generalized weakness. Patient has fallen 3 times. She is now complaining of right flank, back and left lower ribs pain. She denies any abdominal pain, nausea, vomiting, chest pain, shortness of breath, constipation or diarrhea. She carries urinary and bladder incontinence. Her initial work up in ED shows a CBC remarkable for WBC of 14.79 and Neutrophils 12.72. Her chemistry is remarkable for AG 15.1, BUN 31, Cr 1, BS 127 , AST 46, ALT 44, Alk Phos 152, CRP 13.8, and Albumin 3.3. Her UA shows pos for UTI. CXR shows mild increased opacification within the right lung base. Her Abdominal/Pelvis CT scan shows slight wall thickening within the descending colon and sigmoid colon difficult to exclude non-specific colitis. Patient was referred to me for multiple issues: Generalized Weakness, Neglect, Confusion, UTI and Non-specific Colitis. She is full code. Patient was admitted to med/surg status; treated with IV hydration, IV abx of Rocephin which was sensitive- ecoli organism on culture. PT/OT worked with her on strengthening which was slowly improving. Labs/electrolytes remained essentially stable. Blood cultures were negative. She had xrays of lumbar spine and left ribs for c/o pain there s/p falls at home- both negative for acute findings. She had cognitive eval with moderate findings of memory impairment, specifically with executive functioning such as financial responsibilities. Discharge planning was ongoing and son agreed to SNF placement. She will be discharged today to [facility]. Dr. Maya did speak to accepting physician Dr. Hodge yesterday with report. - Discharge Data Discharge Date: 06/21/16 (admit date06/15/16) Discharge Disposition: DC/Tfer to SNF 03 Condition: Good - Discharge Diagnosis/Problem(s) (1) Urinary tract infection SNOMED Code(s): 16699678 ICD Code: N39.0 - URINARY TRACT INFECTION, SITE NOT SPECIFIED Status: Acute Priority: High Current Visit: Yes Qualifiers: Urinary tract infection type: acute cystitis Hematuria presence: with hematuria Qualified Code(s): N30.01 - Acute cystitis with hematuria (2) Weakness SNOMED Code(s): 50006313 ICD Code: R53.1 - WEAKNESS Status: Acute Priority: High Current Visit: Yes (3) Falls frequently SNOMED Code(s): 261185362 ICD Code: R29.6 - REPEATED FALLS Status: Acute Priority: High Current Visit: Yes (4) Rib pain on left side SNOMED Code(s): 205697883 ICD Code: R07.81 - PLEURODYNIA Status: Acute Priority: High Current Visit: Yes (5) Back pain SNOMED Code(s): 807107607 ICD Code: M54.9 - DORSALGIA, UNSPECIFIED Status: Acute Priority: High Current Visit: Yes Qualifiers: Back pain location: low back pain Chronicity: acute Back pain laterality : midline Sciatica presence: without sciatica Qualified Code(s): M54.5 - Low back pain - Patient Summary/Data Operative Procedure(s) Performed: None Complications: None Consults: Consultations 06/15/16 22:55 Consult to Case Management [CONS] Routine Consult to Thoracic Surgeon [CONS] Routine Consult to Spiritual Care [CONS] Routine OT Evaluation and Treatment [CONS] Routine PT Evaluation and Treatment [CONS] Routine 06/16/16 06:46 Consult to Physician [CONS] Routine 06/19/16 11:55 Consult to Speech Language Pathology [ETCHER HAND Evaluation and Treatment] [CONS] Routine Labs Pending at D/C: None Recommended Follow-up Testing/Procedures: None Planned Operative Procedure(s) after DC: None Hospital Course: As above - Patient Instructions Diet: Usual Diet as Tolerated, Drink 8-10+ Glasses/Day Activity: As Tolerated (with walker; PT/OT to continue at [place]) Driving: Do Not Drive Showering/Bathing: May Shower Notify Provider of: Fever, Increased Pain, Nausea and/or Vomiting - Discharge Plan Home Medications: Home Meds Levothyroxine 75 mcg PO ACBREAKFAST 06/15/16 [History] Omeprazole 40 mg PO DAILY 06/15/16 [History] Patient Handouts: Urinary Tract Infection, Adult, [id number] Forms: ED Department Discharge Referrals: PCP,Not In Area [Primary Care Provider] - - Discharge Summary/Plan Comment DC Time >30 min.: Yes (40 min) - General Info Date of Service: 06/21/16 Admission Dx/Problem (Free Text: Admission Diagnosis/Problem Admission Diagnosis/Problem UTI Functional Status: Reports: pain controlled, tolerating diet, ambulating, urinating. Denies: new symptoms - Review of Systems General: Reports: no symptoms HEENT: Reports: no symptoms Pulmonary: Reports: no symptoms Cardiovascular: Reports: no symptoms Gastrointestinal: Reports: No symptoms Genitourinary: Reports: no symptoms Musculoskeletal: Reports: no symptoms Skin: Reports: no symptoms Neurological: Reports: no symptoms, confusion (pleasantly confused) Psychiatric: Reports: no symptoms, confusion (pleasantly confused) - Patient Data Vitals - Most Recent: Last Vital Signs Temp 98.8 F 06/21/16 03:02 Pulse 84 06/21/16 03:02 Resp 14 06/21/16 03:02 BP 127/44 L 06/21/16 03:02 Pulse Ox 94 L 06/21/16 03:02 Weight - Most Recent: 191 lb 14.4 oz I&O - Last 24 hours: Intake & Output 06/20/16 06/20/16 06/21/16 14:59 22:59 06:59 Intake Total 430 900 600 Output Total 600 Balance 430 300 600 Lab Results - Last 24 hrs: Laboratory Results - last 24 hr 06/16/16 06/20/16 06/20/16 Range/Units 05:45 06:48 06:48 WBC 6.97 (3.98-10.04) K/mm3 RBC 3.57 L (3.98-5.22) M/mm3 Hgb 10.7 L (11.2-15.7) gm/L Hct 32.8 L (34.1-44.9) % MCV 91.9 (79.4-94.8) fl MCH 30.0 (25.6-32.2) pg MCHC 32.6 (32.2-35.5) g/dl RDW Std Deviation 46.1 (36.4-46.3) fL Plt Count 357 (182-369) K/mm3 MPV 8.6 L (9.4-12.3) fl Neut % (Auto) 62.3 (34.0-71.1) % Lymph % (Auto) 22.5 (19.3-51.7) % [place] % (Auto) 8.5 (4.7-12.5) % Eos % (Auto) 4.9 (0.7-5.8) Baso % (Auto) 0.9 (0.1-1.2) % Neut # 4.35 (1.56-6.13) K/mm3 Lymph # 1.57 (1.18-3.74) K/mm3 [place] # 0.59 H (0.24-0.36) K/mm3 Eos # 0.34 (0.04-0.36) K/mm3 Baso # 0.06 (0.01-0.08) K/mm3 Sodium 138 (136-145) mEq/L Potassium 4.3 (3.5-5.1) mEq/L Chloride 104 (98-107) mEq/L Carbon Dioxide 25 (21-32) mEq/L Anion Gap 13.3 (5-15) BUN 22 H (7-18) mg/dL Creatinine 1.0 (0.55-1.02) mg/dL Est Cr Clr Drug Dosing 39.27 mL/min Estimated GFR (MDRD) 53 (>60) mL/min BUN/Creatinine Ratio 22.0 H (14-18) Glucose 100 (83-115) mg/dL Calcium 8.7 (8.5-10.1) mg/dL Magnesium 2.0 (1.8-2.4) mg/dl C-Reactive Protein 6.7 H* (<1.0) mg/dL 25-OH Vitamin D Total 42 (>29) ng/mL 06/21/16 Range/Units 06:20 WBC 7.10 (3.98-10.04) K/mm3 RBC 3.66 L (3.98-5.22) M/mm3 Hgb 11.1 L (11.2-15.7) gm/L Hct 33.8 L (34.1-44.9) % MCV 92.3 (79.4-94.8) fl MCH 30.3 (25.6-32.2) pg MCHC 32.8 (32.2-35.5) g/dl RDW Std Deviation 46.3 (36.4-46.3) fL Plt Count 379 H (182-369) K/mm3 MPV 8.6 L (9.4-12.3) fl Neut % (Auto) 62.0 (34.0-71.1) % Lymph % (Auto) 22.8 (19.3-51.7) % [place] % (Auto) 8.5 (4.7-12.5) % Eos % (Auto) 4.5 (0.7-5.8) Baso % (Auto) 0.7 (0.1-1.2) % Neut # 4.40 (1.56-6.13) K/mm3 Lymph # 1.62 (1.18-3.74) K/mm3 [place] # 0.60 H (0.24-0.36) K/mm3 Eos # 0.32 (0.04-0.36) K/mm3 Baso # 0.05 (0.01-0.08) K/mm3 Sodium (136-145) mEq/L Potassium (3.5-5.1) mEq/L Chloride (98-107) mEq/L Carbon Dioxide (21-32) mEq/L Anion Gap (5-15) BUN (7-18) mg/dL Creatinine (0.55-1.02) mg/dL Est Cr Clr Drug Dosing mL/min Estimated GFR (MDRD) (>60) mL/min BUN/Creatinine Ratio (14-18) Glucose (83-115) mg/dL Calcium (8.5-10.1) mg/dL Magnesium (1.8-2.4) mg/dl C-Reactive Protein (<1.0) mg/dL 25-OH Vitamin D Total (>29) ng/mL DAGOBERTO Results - Last 24 hrs: Microbiology 06/16/16 07:24 Aerobic Blood Culture - Preliminary Blood - Venous NO GROWTH AFTER 4 DAYS Anaerobic Blood Culture - Preliminary NO GROWTH AFTER 4 DAYS 06/16/16 07:30 Aerobic Blood Culture - Preliminary Blood - Venous - Lab Draw NO GROWTH AFTER 4 DAYS Anaerobic Blood Culture - Preliminary NO GROWTH AFTER 4 DAYS Med Orders - Current: Current Medications Acetaminophen (Tylenol) 650 mg PO Q4H PRN PRN Reason: Pain (Mild 1-3)/fever Acetaminophen/Hydrocodone Bitart ([place] 325-5 Mg) 1 tab PO Q4H PRN PRN Reason: Pain (moderate 4-6) Last Admin: 06/19/16 20:31 Dose: 1 tab Albuterol (Proventil Neb Soln) 2.5 mg NEB Q2H PRN PRN Reason: Shortness Of Breath/wheezing Bisacodyl (Dulcolax) 5 mg PO DAILY PRN PRN Reason: Constipation Docusate Sodium (Colace) 100 mg PO BID PRN PRN Reason: Constipation Enoxaparin Sodium (Lovenox) 40 mg SUBCUT DAILY [facility] Last Admin: 06/20/16 09:02 Dose: 40 mg Hydromorphone HCl (Dilaudid) 0.25 mg IVPUSH Q2H PRN PRN Reason: Pain (severe 7-10) Promethazine HCl 12.5 mg/ (Sodium Chloride) 50.5 mls @ 100 mls/hr IV Q6H PRN PRN Reason: Nausea/Vomiting Levothyroxine Sodium (Levothyroxine) 75 mcg PO ACBREAKFAST [facility] Last Admin: 06/21/16 06:22 Dose: 75 mcg Multivitamins (Thera) 1 each PO DAILY [facility] Last Admin: 06/20/16 09:03 Dose: 1 each Naproxen (Naprosyn) 500 mg PO Q12HR [facility] Last Admin: 06/20/16 20:00 Dose: 500 mg Ondansetron HCl (Zofran) 4 mg IV Q6H PRN PRN Reason: Nausea/Vomiting Pantoprazole Sodium (Protonix) 40 mg PO DAILY@0700 [facility] Last Admin: 06/21/16 06:22 Dose: 40 mg Saccharomyces Boulardii (Florastor) 250 mg PO BID [facility] Last Admin: 06/20/16 20:00 Dose: 250 mg Senna/Docusate Sodium (Senna Plus) 1 tab PO BID PRN PRN Reason: Constipation Sodium Chloride (Saline Flush) 10 ml FLUSH ASDIRECTED PRN PRN Reason: Keep Vein Open Last Admin: 06/15/16 16:50 Dose: 10 ml Sodium Chloride (Saline Flush) 10 ml FLUSH ASDIRECTED PRN PRN Reason: Keep Vein Open Temazepam (Restoril) 15 mg PO BEDTIME PRN PRN Reason: Sleep Last Admin: 06/20/16 20:00 Dose: 15 mg Thiamine HCl (Vitamin B-1) 100 mg PO BEDTIME [facility] Last Admin: 06/20/16 20:00 Dose: 100 mg Discontinued Medications Diphtheria/Tetanus/Acell Pertussis (Boostrix) 0.5 ml IM .ONCE ONE Stop: 06/16/16 13:01 Sodium Chloride (Normal Saline) 1,000 mls @ 999 mls/hr IV ONETIME ONE Stop: 06/15/16 17:32 Last Admin: 06/15/16 16:54 Dose: 999 mls/hr Levofloxacin/Dextrose 500 mg/ (Premix) 100 mls @ 100 mls/hr IV ONETIME ONE Stop: 06/15/16 19:18 Last Admin: 06/15/16 18:24 Dose: 100 mls/hr Dextrose/Sodium Chloride (Dextrose 5%-1/2 Ns) 1,000 mls @ 125 mls/hr IV ASDIRECTED [facility] Last Admin: 06/17/16 23:35 Dose: 125 mls/hr Levofloxacin/Dextrose 250 mg/ (Premix) 50 mls @ 50 mls/hr IV Q24H [facility] Thiamine HCl 100 mg/ Sodium (Chloride) 101 mls @ 50 mls/hr IV ONETIME ONE Stop: 06/16/16 00:58 Last Admin: 06/16/16 00:05 Dose: 50 mls/hr Ceftriaxone Sodium 1 gm/ (Sodium Chloride) 100 mls @ 200 mls/hr IV Q24H [facility] Stop: 06/19/16 23:59 Last Admin: 06/19/16 14:23 Dose: 200 mls/hr Influenza Virus Vaccine (Fluzone/Fluarix 2016- Vaccine) 60 mcg IM .ONCE ONE Stop: 06/15/16 22:47 Pneumococcal 13-Valent Conj Vacc (Prevnar 13) 0.5 ml IM .ONCE ONE Stop: 06/16/16 13:02 - Exam Quality Assessment: Reports: DVT prophylaxis General: Reports: alert, cooperative, no acute distress HEENT: Reports: Pupils equal, Pupils reactive, EOMI, Mucous membr. moist/pink Neck: Reports: supple Lungs: Reports: Clear to auscultation, Normal respiratory effort, Decreased breath sounds (to bases) Cardiovascular: Reports: regular rate, regular rhythm Abdomen: Reports: bowel sounds present, soft, no tenderness (Female) Exam: Deferred Rectal (Female) Exam: Deferred Back Exam: Reports: normal inspection Extremities: Reports: no edema Skin: Reports: warm, dry Neurological: Reports: no new focal deficit Psy/Mental Status: Reports: alert, normal affect, normal mood *Q Meaningful Use (DIS) - VTE *Q VTE Criteria *Q: - Stroke *Q Stroke Criteria *Q: - AMI *Q AMI Criteria *Q:
[2016-06-21] MEDS: Enoxaparin 40 MG/0.4 ML Syringe SUBCUT SCH (08:33)
[2016-06-21] MEDS: Multivitamins,Therapeutic Tab PO SCH (08:34)
[2016-06-21] MEDS: Acetaminophen/HYDROcodone 325-5 MG Tab PO PRN (08:34)
[2016-06-21] MEDS: Naproxen 500 MG Tab PO SCH (08:35)
[2016-06-21] MEDS: Saccharomyces Boulardii (Probiotic) 250 MG Cap PO SCH (08:38)
[2016-06-21 11:12] VITALS: BP 136/59
== END 2016-06-21 09:30 | DRG 689 ==
LOC: JD.ED 15:28 → JD.MS 19:05
PROVIDERS: ADMIT Internal Medicine; ATTEND Internal Medicine
DX: N39.0 Urinary tract infection, site not specified (principal); G92 Toxic encephalopathy; B96.20 Unspecified Escherichia coli [E. coli] as the cause of diseases classified elsewhere; K52.9 Noninfective gastroenteritis and colitis, unspecified; R53.1 Weakness; R29.6 Repeated falls; K21.9 Gastro-esophageal reflux disease without esophagitis; E03.9 Hypothyroidism, unspecified; Z79.899 Other long term (current) drug therapy; Z88.8 Allergy status to other drugs, medicaments and biological substances; Z91.013 Allergy to seafood; Z91.5 Personal history of self-harm; M54.9 Dorsalgia, unspecified; R07.81 Pleurodynia; Z23 Encounter for immunization
CPT/HCPCS: 36415; 71010; 74176; 80053; 81001; 82553; 83880; 84443; 84484; 85025; 86140; 87086; 87088; 87186; 93005; 96361; 96365; 99285; J1956; J7040; J7050; P9612; 71101-26-LT; 71101-LT; 72100; 72100-26; 80048; 82306; 83735; 84439; 87040; 90471; 90670; 90686; 90715; 94760; 96125-GN; 97110-GO; 97110-GP; 97116-GP; 97161-GP; 97167-GO; 97530-GO; 97530-GP; 99222; 99232; 99284; A9270-GY; G0008; G0009; J0696; J1650; J3411; J7030; J7042